=== PATIENT | female | born 1970 | race Caucasian/White ===

== ENCOUNTER 2017-04-03 07:53 | Day surgery (SDC) | payer MEDICAID, OTHER ==
[~2017-04-03 07:53] MED LIST: Midazolam 1 MG/ML 2 ML SDV ONE; Propofol 200 MG/20 ML SDV ONE; fentaNYL 100 MCG/2 ML SDV ONE
[2017-04-03] MEDS ORDERED: Sodium Chloride 0.9% 1,000 ML IV SCH (08:30)
[2017-04-03] MEDS ORDERED: Magnesium Sulfate/Water 2 GM in Premix Bag 1 BAG IV ONE (08:30)
[2017-04-03] MEDS: Bupivacaine 0.5% 50 ML MDV ONE ×2 (08:51→10:00)
[2017-04-03] MEDS: Lidocaine 1% with EPINEPHrine 1:100,000 50 ML MDV ONE ×2 (08:52→10:00)
[2017-04-03] MEDS ORDERED: Clindamycin Phosphate 900 MG in Sodium Chloride 0.9% 100 ML IV ONE (09:00)
[2017-04-03] MEDS ORDERED: Hydrocortisone Sodium Succinate 100 MG/2 ML SDV IVPUSH PRN (09:14)
[2017-04-03] MEDS ORDERED: Famotidine 20 MG/2 ML SDV IVPUSH PRN (09:17)
[2017-04-03] MEDS ORDERED: diphenhydrAMINE 50 MG/ML SDV IVPUSH PRN (10:45)
[2017-04-03 12:14] VITALS: BP 108/73
--- NOTE | 2017-04-04 17:38 | OR ---
DATE OF PROCEDURE: 04/03/2017 PREOPERATIVE DIAGNOSIS: Ulcerated skin lesions along the nipple areolar border bilaterally. POSTOPERATIVE DIAGNOSIS: Ulcerated skin lesions along the nipple areolar border bilaterally. OPERATIVE PROCEDURE: 1. Excision of ulcerated skin lesion along the inferior aspect of the areolar border, right breast (13313). 2. Excision of ulcerated skin lesion, superior aspect of the areolar border, right breast ([id number]). 3. Excision of ulcerated skin lesion lateral aspect of the areolar border, left breast ([id number]). ANESTHESIA: Local plus sedation. INDICATION FOR PROCEDURE: The patient presents with three ulcerating lesions. These were all located along the previous incision line used during the breast reduction at the point where the nipple-areolar complex had been placed in a new location. Two of these are on the right side and one on the left. The plan is to proceed with excision of these. These may be related to some underlying suture material or foreign body such as causing reaction. Given this, we will do a simple repair rather than leaving any deeper stitches in place. The potential risks including bleeding, infection, the lack of the deeper sutures as the incisions may become open were reviewed, and the patient wishes to proceed. DETAILS OF PROCEDURE: The patient was taken to the operating room and placed in a spine position. After IV sedation was administered, the breast areas were prepped bilaterally and each site was anesthetized with 1% lidocaine mixed with Marcaine. The lesion over the right inferior breast measured 2.4 cm, the superior breast 3.1 cm and the lateral aspect of the left breast was 1.2 cm. In each case, elliptical incisions in line of the incision were made, carried down through the skin and subcutaneous tissue, removing any underlying pathology and specimens were delivered from the field. The larger of those 2 areas both on the right were bisected to some extent and cultures obtained and the incisions in each case were then closed with 4-0 Vicryl skin stitch and dressing applied. The patient was taken to the recovery room in satisfactory condition. Additional management in this case included knowing that her magnesium and ferritin levels were both quite low, she had been given 500 mg of Feraheme today and then lab repeated some time in the next week or so and then magnesium sulfate 2 g given IV, and she will be started on magnesium sulfate 100 mg x30 days with refills x6, at some point in the few months the magnesium and iron levels will need to be repeated. Feliciano Azul MD /[id number]
== END 2017-04-03 12:25 | disposition home or self-care (01) ==
LOC: JP.SDS 07:53
PROVIDERS: ATTEND Surgery
DX: N60.32 Fibrosclerosis of left breast (principal); N60.31 Fibrosclerosis of right breast; N61.1 Abscess of the breast and nipple; E66.9 Obesity, unspecified; G45.9 Transient cerebral ischemic attack, unspecified; I63.9 Cerebral infarction, unspecified; F41.9 Anxiety disorder, unspecified; F32.9 Major depressive disorder, single episode, unspecified; I10 Essential (primary) hypertension; E11.9 Type 2 diabetes mellitus without complications; K21.9 Gastro-esophageal reflux disease without esophagitis; Z88.0 Allergy status to penicillin; Z88.1 Allergy status to other antibiotic agents; Z88.8 Allergy status to other drugs, medicaments and biological substances; Z91.010 Allergy to peanuts; Z91.018 Allergy to other foods; Z91.030 Bee allergy status; Z91.013 Allergy to seafood; Z90.49 Acquired absence of other specified parts of digestive tract; Z98.84 Bariatric surgery status; Z90.710 Acquired absence of both cervix and uterus; Z98.890 Other specified postprocedural states; Z68.30 Body mass index [BMI] 30.0-30.9, adult
CPT/HCPCS: 11402; 11403; 87070; 87075; 87077; 87186; 87205; 88305; 88312; J2250; J2704; J3010; J3475; J7030; J7040; Q0138; S0077

== ENCOUNTER 2017-04-20 06:35 | Day surgery (SDC) | payer MEDICAID ==
[2017-04-20] MEDS ORDERED: Cyanocobalamin (Vitamin B12) 1,000 MCG/ML SDV IM ONE (07:30)
[2017-04-20] MEDS ORDERED: Lactated Ringers 1,000 ML IV SCH (07:30)
[2017-04-20] MEDS ORDERED: Midazolam 1 MG/ML 2 ML SDV ONE (07:41)
[2017-04-20] MEDS ORDERED: fentaNYL 100 MCG/2 ML SDV ONE (07:41)
[2017-04-20] MEDS ORDERED: Propofol 200 MG/20 ML SDV ONE (07:41)
[2017-04-20] MEDS ORDERED: MVI, Adult with Vitamin K 10 ML, Thiamine 200 MG, Chromium/Copper/Mang/Selen/Zn 1 ML in... IV ONE ×4 (08:30)
[2017-04-20] MEDS ORDERED: Glycopyrrolate 0.2 MG/ML 2 ML SDV IVPUSH ONE (08:30)
[2017-04-20 10:54] VITALS: BP 120/81
--- NOTE | 2017-04-25 15:52 | OR ---
DATE OF PROCEDURE: 04/20/2017 PREOPERATIVE DIAGNOSIS: Dysphagia, status post George-en-Y gastrojejunostomy. POSTOPERATIVE DIAGNOSIS: Normal examination, status post George-en-Y gastrojejunostomy. OPERATIVE PROCEDURE: Upper GI endoscopy with dilation of gastrojejunostomy ([id number]). ANESTHESIA: IV sedation. INDICATION FOR PROCEDURE: This is a 46-year-old status post George-en-Y gastrojejunostomy for gastroesophageal reflux disease refractory to medical management following previous Marcelo fundoplication. She is complaining of some dysphagia suggestive of stricturing at her gastrojejunostomy. Plan is to proceed with upper GI endoscopy with biopsy and/or dilation as indicated. Potential risks including bleeding and perforation were discussed, and the patient wishes to proceed. DETAILS OF PROCEDURE: The patient was taken to the operating room and placed in a left lateral decubitus position. IV sedation was administered, after which the upper GI endoscope was passed orally through the length of the esophagus into the gastric pouch and through the gastrojejunostomy roughly 20 cm into the George limb. The patient was noted to have essentially normal examination. A 54-Sudanese dilator was inflated across the gastrojejunostomy, but it did not result any significant change confirming that this was not significant stenotic anastomosis. No other problems were noted. The scope was then withdrawn and the procedure was then concluded. The patient received some additional guidance with dietary regarding eating behavior which should help relieve dysphagia. Feliciano Azul MD /[id number]
== END 2017-04-20 11:18 | disposition home or self-care (01) ==
LOC: JP.SDS 06:35
PROVIDERS: ATTEND Surgery
DX: R13.10 Dysphagia, unspecified (principal); K21.9 Gastro-esophageal reflux disease without esophagitis; I10 Essential (primary) hypertension; E11.9 Type 2 diabetes mellitus without complications; F41.9 Anxiety disorder, unspecified; F32.9 Major depressive disorder, single episode, unspecified; E55.9 Vitamin D deficiency, unspecified; G45.9 Transient cerebral ischemic attack, unspecified; Z98.84 Bariatric surgery status; Z88.0 Allergy status to penicillin; Z88.1 Allergy status to other antibiotic agents; Z88.8 Allergy status to other drugs, medicaments and biological substances; Z91.010 Allergy to peanuts; Z91.018 Allergy to other foods; Z91.013 Allergy to seafood
CPT/HCPCS: 43245; J2250; J2704; J3010; J3411; J3420; J7120; J3490

== ENCOUNTER 2017-06-03 18:18 | Emergency (ER) | payer MEDICAID ==
[2017-06-03] MEDS ORDERED: HYDROmorphone 1 MG/ML Syringe IVPUSH ONE (20:21)
[2017-06-03] MEDS ORDERED: Ondansetron 4 MG/2 ML SDV IVPUSH ONE (20:22)
[2017-06-03] MEDS ORDERED: Sodium Chloride 0.9% 1,000 ML IV SCH (20:30)
--- NOTE | 2017-06-03 20:40 | EDM.PDOC ---
ED HPI GENERAL MEDICAL PROBLEM - General Chief Complaint: Back Pain or Injury Stated Complaint: ILLNESS Time Seen by Provider: 06/03/17 20:01 Source of Information: Reports: Patient, Family (Mom and adult Daughter) History Limitations: Reports: No Limitations - History of Present Illness INITIAL COMMENTS - FREE TEXT/NARRATIVE: concerns of malfunction of Pain pump; This is a 46 year old female presents to ER with Mom and daughter. Reports has a "pain" pump in the right abdomen. This was placed in Dec 2015. She initial had complications after placement, but none with the past year. 3 days ago, she noticed she was unable to feel the port and her abdomen felt sore. She has since developed a headache, generalized body ache and worsen back pain. She did call [facility] line and was told to come to ER for evaluation. Concerns of disconnection of tubing, not receiving Dilaudid and Bevacaine, and early narcotic withdrawn. Onset: Gradual Onset Date: 06/01/17 Duration: Day(s): (three) Location: Reports: Abdomen Severity: Moderate (rates pain at 7 or 8 out of 10) Improves with: Reports: None Worsens with: Reports: None Context: Reports: Other (internal pump malfunction) Associated Symptoms: Reports: Headaches, Loss of Appetite, Malaise, Nausea/ Vomiting, Other (generalized body aches and pain) Lower Back Pain Score (Numeric/FACES): 8 headache Pain Score (Numeric/FACES): 8 - Related Data Allergies Allergy/AdvReac Type Severity Reaction Status Date / Time peanut Allergy Severe Anaphylactic Verified 06/03/17 19:45 Shock prochlorperazine edisylate Allergy Severe swelling Verified 06/03/17 19:45 [From Compazine] throat amoxicillin [Amoxicillin] Allergy Hives Verified 06/03/17 19:45 beeswax Allergy Other Verified 06/03/17 19:45 cefadroxil [Cefadroxil] Allergy Cannot Verified 06/03/17 19:45 Remember cephalexin monohydrate Allergy Hives Verified 06/03/17 19:45 [From Keflex] Cephalosporins Allergy Hives Verified 06/03/17 19:45 garlic [From Garlique] Allergy Hives Verified 06/03/17 19:45 gluten Allergy Other Verified 06/03/17 19:45 levofloxacin [From Levaquin] Allergy Rash Verified 06/03/17 19:45 lisinopril Allergy Rash Verified 06/03/17 19:45 Penicillins Allergy Rash Verified 06/03/17 19:45 prochlorperazine maleate Allergy Cannot Verified 06/03/17 19:45 [From Compazine] Remember promethazine Allergy Hives Verified 06/03/17 19:45 shellfish derived Allergy Hives Verified 06/03/17 19:45 strawberry [Waldo] Allergy Hives Verified 06/03/17 19:45 metformin AdvReac Diarrhea Verified 06/03/17 19:45 Home Meds: Home Meds Multivitamin [Chewable Multi Vitamin] 1 tab PO DAILY 10/29/14 [History] Magnesium Oxide [Magnesium] 400 mg PO TID 02/26/15 [History] Baclofen 20 mg PO BID 03/30/17 [History] Cholecalciferol (Vitamin D3) [Vitamin D3] 50,000 unit PO .7DAY 03/30/17 [History ] ClonazePAM [KlonoPIN] 0.25 mg PO BID PRN 03/30/17 [History] Furosemide [Lasix] 20 mg PO DAILY 03/30/17 [History] Gabapentin [Neurontin] 600 mg PO QID 03/30/17 [History] Ondansetron [Zofran] 4 mg PO Q8HR PRN 03/30/17 [History] Potassium Chloride 20 meq PO BID 04/03/17 [History] Orphenadrine [Norflex] 100 mg PO BEDTIME PRN 06/03/17 [History] Past Medical History HEENT History: Reports: None Cardiovascular History: Reports: Hypertension Gastrointestinal History: Reports: GERD, Irritable Bowel Syndrome, Pancreatitis Other Gastrointestinal History: liver problems/ pancreatitis Genitourinary History: Reports: UTI, Recurrent [employer] History: Reports: Other OB/BYN History: bilateral breast reduction Musculoskeletal History: Reports: Back Pain, Chronic, Fibromyalgia, Osteoporosis Neurological History: Reports: CVA, TIA, Other (See Below) Other Neuro History: subdural hematoma after "pain pump surgery" Psychiatric History: Reports: Anxiety, Depression, Suicide Attempt Endocrine/Metabolic History: Reports: Diabetes, Type II, Obesity/BMI 30+, Vitamin D Deficiency Hematologic History: Reports: Anemia, B12 Deficiency, Blood Transfusion(s), Hemochromatosis Dermatologic History: Reports: Other (See Below) Other Dermatologic History: history necrotizing fasciitis - Infectious Disease History Infectious Disease History: Reports: Chicken Pox, Mononucleosis Other Infectious Disease History: "non alcoholic steato hepatitis" - Past Surgical History HEENT Surgical History: Reports: Oral Surgery Cardiovascular Surgical History: Reports: Other (See Below) Other Cardiovascular Surgeries/Procedures: angiogram GI Surgical History: Reports: Bariatric Procedure, Cholecystectomy, Colonoscopy , EGD, Esophageal Dilatation Female Surgical History: Reports: Breast Biopsy, Breast Reduction, Hysterectomy Neurological Surgical History: Reports: Other (See Below) Other Neurological Surgeries/Procedures: "pain pump in spine" lower back according to patient Social & Family History - Family History Family Medical History: Noncontributory - Tobacco Use Smoking Status *Q: Never Smoker Years of Tobacco use: 1 Used Tobacco, but Quit: Yes Month Tobacco Last Used: 05/1990 Second Hand Smoke Exposure: No - Caffeine Use Caffeine Use: Reports: None - Alcohol Use Days Per Week of Alcohol Use: 0 Number of Drinks Per Day: 1 Total Drinks Per Week: 0 - Recreational Drug Use Recreational Drug Use: No Drug Use in Last 12 Months: No - Living Situation & Occupation Living situation: Reports: Single, with Family Occupation: Disabled (lives in [place], [place]. with Mom, and adult daughter) ED ROS GENERAL - Review of Systems Review Of Systems: See Below Constitutional: Reports: Malaise, Fatigue HEENT: Reports: Other (headache) Respiratory: Reports: No Symptoms Cardiovascular: Reports: No Symptoms Endocrine: Reports: No Symptoms GI/Abdominal: Reports: Abdominal Pain (palpate internal device to the right abdomen. no redness to the skin is noted. tenderness surrounding the device. ), Nausea, Other (hx of gastric bypass, priyanka fundiplication) : Reports: No Symptoms, Frequency Musculoskeletal: Reports: Back Pain, Muscle Pain Skin: Reports: No Symptoms Neurological: Reports: Headache Psychiatric: Reports: Depression Hematologic/Lymphatic: Reports: No Symptoms Immunologic: Reports: No Symptoms ED EXAM, GI/ABD - Physical Exam Exam: See Below Exam Limited By: No Limitations General Appearance: Alert, WD/WN, Mild Distress, Thin Eyes: Bilateral: Normal Appearance (perrla), EOMI Ears: Normal External Exam, Normal Canal, Hearing Grossly Normal, Normal TMs Nose: Normal Inspection, Normal Mucosa, No Blood Throat/Mouth: Normal Inspection, Normal Lips, Normal Teeth, Normal Gums, Normal Oropharynx, Normal Voice, No Airway Compromise, Other (no natural teeth present) Head: Atraumatic, Normocephalic Neck: Normal Inspection, Supple, Non-Tender, Full Range of Motion Respiratory/Chest: No Respiratory Distress Cardiovascular: Regular Rate, Rhythm, No Murmur GI/Abdominal Exam: Normal Bowel Sounds, Soft, No Distention, Tender ( surrounding internal device right abdomen) (Female) Exam: Deferred Rectal (Female) Exam: Deferred Back Exam: Normal Inspection, Full Range of Motion Extremities: Normal Inspection, Normal Range of Motion, Non-Tender, No Pedal Edema, Normal Capillary Refill Neurological: Alert, Oriented, CN II-XII Intact, No Motor/Sensory Deficits, Other (flat affect) Psychiatric: Flat Affect Skin Exam: Warm, Dry, Intact, Normal Color, No Rash Lymphatic: No Adenopathy Course - Vital Signs Last Recorded V/S: Last Vital Signs Temp 36.4 C 06/03/17 19:52 Pulse 80 06/03/17 20:48 Resp 16 06/03/17 20:48 BP 142/85 H 06/03/17 20:48 Pulse Ox 100 06/03/17 20:48 - Orders/Labs/Meds Orders: Active Orders 24 hr Category Date Time Status Abdomen Pelvis wo Cont [CT] Stat Exams 06/03/17 20:23 Taken Sodium Chloride 0.9% [Normal Saline] 1,000 ml Med 06/03/17 20:30 Active IV ASDIRECTED Medication Orders Sodium Chloride (Normal Saline) 1,000 mls @ 999 mls/hr IV ASDIRECTED SOURAV Last Admin: 06/03/17 20:41 Dose: 999 mls/hr Labs: Laboratory Tests 06/03/17 06/03/17 06/03/17 Range/Units 20:21 20:21 20:40 WBC 6.0 (4.5-11.0) K/uL RBC 4.86 (3.30-5.50) M/uL Hgb 14.8 (12.0-15.0) g/dL Hct 43.5 (36.0-48.0) % MCV 90 (80-98) fL MCH 31 (27-31) pg MCHC 34 (32-36) % Plt Count 182 (150-400) K/uL Neut % (Auto) 42 (36-66) % Lymph % (Auto) 45 H (24-44) % Charlotte % (Auto) 12 H (2-6) % Eos % (Auto) 2 (2-4) % Baso % (Auto) 0 (0-1) % Sodium 142 (140-148) mmol/L Potassium 4.8 (3.6-5.2) mmol/L Chloride 102 (100-108) mmol/L Carbon Dioxide 32 (21-32) mmol/L Anion Gap 8.5 (5.0-14.0) mmol/L BUN 13 (7-18) mg/dL Creatinine 0.8 (0.6-1.0) mg/dL Est Cr Clr Drug Dosing 83.13 mL/min Estimated GFR (MDRD) > 60 (>60) Glucose 110 H (74-106) mg/dL Calcium 9.2 (8.5-10.1) mg/dL Magnesium 1.9 D (1.8-2.4) mg/dL Total Bilirubin 0.5 (0.2-1.0) mg/dL AST 53 H (15-37) U/L ALT 38 (12-78) U/L Alkaline Phosphatase 64 (46-116) U/L Total Protein 7.8 (6.4-8.2) g/dL Albumin 3.9 (3.4-5.0) g/dL Globulin 3.9 H (2.3-3.5) g/dL Albumin/Globulin Ratio 1.0 L (1.2-2.2) Urine Color Yellow Urine Appearance Slightly cloudy Urine pH 5.0 (4.5-8.0) Ur Specific Mchenry 1.020 (1.008-1.030) Urine Protein Negative (NEGATIVE) mg/dL Urine Glucose (UA) Normal (NEGATIVE) mg/dL Urine Ketones Negative (NEGATIVE) mg/dL Urine Occult Blood Negative (NEGATIVE) Urine Nitrite Negative (NEGATIVE) Urine Bilirubin Negative (NEGATIVE) Urine Urobilinogen 1 (NORMAL) mg/dL Ur Leukocyte Esterase Large (NEGATIVE) Urine RBC Not seen (0-5) Urine WBC 30-40 H (0-5) Ur Epithelial Cells Moderate Amorphous Sediment Not seen Urine Bacteria Moderate Urine Mucus Few Urine Opiates Screen (NEGATIVE) Ur Oxycodone Screen (NEGATIVE) Urine Methadone Screen (NEGATIVE) Ur Propoxyphene Screen (NEGATIVE) Ur Barbiturates Screen (NEGATIVE) Ur Tricyclics Screen (NEGATIVE) Ur Phencyclidine Scrn (NEGATIVE) Ur Amphetamine Screen (NEGATIVE) U Methamphetamines Scrn (NEGATIVE) Urine MDMA Screen (NEGATIVE) U Benzodiazepines Scrn (NEGATIVE) U Cocaine Metab Screen (NEGATIVE) U Marijuana (THC) Screen (NEGATIVE) 06/03/17 Range/Units 20:40 WBC (4.5-11.0) K/uL RBC (3.30-5.50) M/uL Hgb (12.0-15.0) g/dL Hct (36.0-48.0) % MCV (80-98) fL MCH (27-31) pg MCHC (32-36) % Plt Count (150-400) K/uL Neut % (Auto) (36-66) % Lymph % (Auto) (24-44) % Charlotte % (Auto) (2-6) % Eos % (Auto) (2-4) % Baso % (Auto) (0-1) % Sodium (140-148) mmol/L Potassium (3.6-5.2) mmol/L Chloride (100-108) mmol/L Carbon Dioxide (21-32) mmol/L Anion Gap (5.0-14.0) mmol/L BUN (7-18) mg/dL Creatinine (0.6-1.0) mg/dL Est Cr Clr Drug Dosing mL/min Estimated GFR (MDRD) (>60) Glucose (74-106) mg/dL Calcium (8.5-10.1) mg/dL Magnesium (1.8-2.4) mg/dL Total Bilirubin (0.2-1.0) mg/dL AST (15-37) U/L ALT (12-78) U/L Alkaline Phosphatase (46-116) U/L Total Protein (6.4-8.2) g/dL Albumin (3.4-5.0) g/dL Globulin (2.3-3.5) g/dL Albumin/Globulin Ratio (1.2-2.2) Urine Color Urine Appearance Urine pH (4.5-8.0) Ur Specific Mchenry (1.008-1.030) Urine Protein (NEGATIVE) mg/dL Urine Glucose (UA) (NEGATIVE) mg/dL Urine Ketones (NEGATIVE) mg/dL Urine Occult Blood (NEGATIVE) Urine Nitrite (NEGATIVE) Urine Bilirubin (NEGATIVE) Urine Urobilinogen (NORMAL) mg/dL Ur Leukocyte Esterase (NEGATIVE) Urine RBC (0-5) Urine WBC (0-5) Ur Epithelial Cells Amorphous Sediment Urine Bacteria Urine Mucus Urine Opiates Screen Positive H (NEGATIVE) Ur Oxycodone Screen Negative (NEGATIVE) Urine Methadone Screen Negative (NEGATIVE) Ur Propoxyphene Screen Negative (NEGATIVE) Ur Barbiturates Screen Negative (NEGATIVE) Ur Tricyclics Screen Negative (NEGATIVE) Ur Phencyclidine Scrn Negative (NEGATIVE) Ur Amphetamine Screen Negative (NEGATIVE) U Methamphetamines Scrn Negative (NEGATIVE) Urine MDMA Screen Negative (NEGATIVE) U Benzodiazepines Scrn Negative (NEGATIVE) U Cocaine Metab Screen Negative (NEGATIVE) U Marijuana (THC) Screen Negative (NEGATIVE) Meds: Medications Generic Name Dose Route Start Last Admin Trade Name Freq PRN Reason Stop Dose Admin Sodium Chloride 1,000 mls @ 999 mls/hr 06/03/17 20:30 06/03/17 20:41 Normal Saline IV 999 mls/hr ASDIRECTED SOURAV Administration Discontinued Medications Generic Name Dose Route Start Last Admin Trade Name Freq PRN Reason Stop Dose Admin Hydromorphone HCl 1 mg 06/03/17 20:21 06/03/17 20:44 Dilaudid IVPUSH 06/03/17 20:22 1 mg ONETIME ONE Administration Ondansetron HCl 4 mg 06/03/17 20:22 06/03/17 20:43 Zofran IVPUSH 06/03/17 20:23 4 mg ONETIME ONE Administration - Re-Assessments/Exams Free Text/Narrative Re-Assessment/Exam: 06/03/17 20:55 labs; cbc, cmp, mg++, ua, urine drug screen imaging; CT abdomen-pelvis meds; IV normal saline 1 liter, IV Dilaudid 1mg, IV Zofran 4mg awaiting result of testing. 06/03/17 21:55 labs; cbc, cmp, mg++, urine drug screen appropriate urine show acute UTI imaging; CT Abdomen Pelvis; impression; right lower quadrant baclofen pump. no fluid colleciton associated with the pump. assessment of the catheter immediately adjacent to the pump is limietd secondary to artifact. where able to be evaluated, no catheter discontinuity is appreciated. changes of prior gastric bypass. no bowel obstruction. prior cholecystectomy. ormal appearance of the biliary system status pos cholecystectomy. area of geographic fatty infiltration of the liver. non obstructive intrarenal calcul. no ureteral calculi or hydronephrosis. reviewed with Ms. Wang and her family all labs and scan. given a copy of CT scan for her records.. 06/03/17 22:07 improved with IV fluids and medications. Departure - Departure Time of Disposition: 22:07 Disposition: Home, Self-Care 01 Condition: Good Clinical Impression: Urinary tract infection, Presence of intrathecal baclofen pump - Discharge Information Referrals: PCP,None [Primary Care Provider] - Forms: ED Department Discharge Care Plan Goals: Urinary Tract Infection -start Septra DS tonight, take one tablet two times a day til gone -if develops sign of yeast infection, has script for Diflucon 150mg po -advise to push fluids, take medication as directed, return to clinic or ER if symptoms worsen or not improved. Baclofen pump -evaluation by CT scan, appears to be intact, no leakage of fluids. -urine drug screen positive for opiates, which has Dilaudid and bevacaine in her pump -advise to follow up with [facility] for recheck. - Problem List & Annotations (1) Urinary tract infection SNOMED Code(s): 02063272 Code(s): N39.0 - URINARY TRACT INFECTION, SITE NOT SPECIFIED Status: Acute Priority: High Current Visit: Yes Qualifiers: Urinary tract infection type: acute cystitis Hematuria presence: without hematuria Qualified Code(s): N30.00 - Acute cystitis without hematuria (2) Presence of intrathecal baclofen pump SNOMED Code(s): 313733647 Code(s): Z98.890 - OTHER SPECIFIED POSTPROCEDURAL STATES Status: Acute Priority: High Current Visit: Yes - Problem List Review Problem List Initiated/Reviewed/Updated: Yes - My Orders Last 24 Hours: My Active Orders 06/03/17 20:23 Abdomen Pelvis wo Cont [CT] Stat 06/03/17 20:30 Sodium Chloride 0.9% [Normal Saline] 1,000 ml IV ASDIRECTED - Assessment/Plan Last 24 Hours: My Active Orders 06/03/17 20:23 Abdomen Pelvis wo Cont [CT] Stat 06/03/17 20:30 Sodium Chloride 0.9% [Normal Saline] 1,000 ml IV ASDIRECTED Plan: Urinary Tract Infection -start Septra DS tonight, take one tablet two times a day til gone -if develops sign of yeast infection, has script for Diflucon 150mg po,take at onset of yeast symptoms -advise to push fluids, take medication as directed, return to clinic or ER if symptoms worsen or not improved. Baclofen pump -evaluation by CT scan, appears to be intact, no leakage of fluids. -urine drug screen positive for opiates, which is appropriate as she has Dilaudid and bevacaine in her pump -advise to follow up with [facility] for recheck.
[2017-06-03 22:05] VITALS: BP 139/81
== END 2017-06-03 22:14 | disposition home or self-care (01) ==
LOC: JP.ED 18:18
DX: N39.0 Urinary tract infection, site not specified (principal); I10 Essential (primary) hypertension; E11.9 Type 2 diabetes mellitus without complications; Z88.8 Allergy status to other drugs, medicaments and biological substances; Z91.013 Allergy to seafood; Z88.1 Allergy status to other antibiotic agents; Z88.0 Allergy status to penicillin; Z79.899 Other long term (current) drug therapy; Z97.8 Presence of other specified devices
CPT/HCPCS: 36415; 74176; 80053; 80305; 81001; 83735; 85025; 96361; 96374; 96375; 99284; J1170; J2405; J7040; J7030

== ENCOUNTER 2017-06-14 19:00 | Emergency (ER) | payer MEDICAID ==
[2017-06-14 19:39] VITALS: BP 140/89
--- NOTE | 2017-06-14 20:43 | EDM.PDOC ---
ED HPI GENERAL MEDICAL PROBLEM - General Chief Complaint: General Stated Complaint: HEADACHES/DROOLING HARD TO WALK Time Seen by Provider: 06/14/17 20:32 Source of Information: Reports: Patient, RN Notes Reviewed History Limitations: Reports: No Limitations - History of Present Illness INITIAL COMMENTS - FREE TEXT/NARRATIVE: 46-year-old female presents emergency department today with complaint of excessive daytime sleepiness, concern for leaking pain pump and unsteady gait, she was evaluated by neurology last month extensive workup thought to be related to polypharmacy possibly sleep-disordered does have a sleep study upcoming, her and her mother are concerned that she may have a brain bleed and that is the root cause of her problems Bladder Pain Score (Numeric/FACES): 6 - Related Data Allergies Allergy/AdvReac Type Severity Reaction Status Date / Time peanut Allergy Severe Anaphylactic Verified 06/14/17 19:52 Shock prochlorperazine edisylate Allergy Severe swelling Verified 06/14/17 19:52 [From Compazine] throat amoxicillin [Amoxicillin] Allergy Hives Verified 06/14/17 19:52 beeswax Allergy Other Verified 06/14/17 19:52 cefadroxil [Cefadroxil] Allergy Cannot Verified 06/14/17 19:52 Remember cephalexin monohydrate Allergy Hives Verified 06/14/17 19:52 [From Keflex] Cephalosporins Allergy Hives Verified 06/14/17 19:52 garlic [From Garlique] Allergy Hives Verified 06/14/17 19:52 gluten Allergy Other Verified 06/14/17 19:52 levofloxacin [From Levaquin] Allergy Rash Verified 06/14/17 19:52 lisinopril Allergy Rash Verified 06/14/17 19:52 Penicillins Allergy Rash Verified 06/14/17 19:52 prochlorperazine maleate Allergy Cannot Verified 06/14/17 19:52 [From Compazine] Remember promethazine Allergy Hives Verified 06/14/17 19:52 shellfish derived Allergy Hives Verified 06/14/17 19:52 strawberry [[place]] Allergy Hives Verified 06/14/17 19:52 metformin AdvReac Diarrhea Verified 06/14/17 19:52 Home Meds: Home Meds Multivitamin [Chewable Multi Vitamin] 1 tab PO DAILY 10/29/14 [History] Magnesium Oxide [Magnesium] 400 mg PO TID 10/02/15 [History] Baclofen 20 mg PO BID 03/30/17 [History] Cholecalciferol (Vitamin D3) [Vitamin D3] 50,000 unit PO .7DAY 03/30/17 [History ] ClonazePAM [KlonoPIN] 0.25 mg PO BID PRN 03/30/17 [History] Furosemide [Lasix] 20 mg PO DAILY 03/30/17 [History] Gabapentin [Neurontin] 600 mg PO QID 03/30/17 [History] Ondansetron [Zofran] 4 mg PO Q8HR PRN 03/30/17 [History] Potassium Chloride 20 meq PO BID 04/03/17 [History] Orphenadrine [Norflex] 100 mg PO BEDTIME PRN 06/03/17 [History] Past Medical History Cardiovascular History: Reports: Hypertension Gastrointestinal History: Reports: GERD, Irritable Bowel Syndrome, Pancreatitis Other Gastrointestinal History: liver problems/ pancreatitis Genitourinary History: Reports: UTI, Recurrent [employer] History: Reports: Other OB/BYN History: bilateral breast reduction Musculoskeletal History: Reports: Back Pain, Chronic, Fibromyalgia, Osteoporosis Neurological History: Reports: CVA, TIA, Other (See Below) Other Neuro History: subdural hematoma after "pain pump surgery" Psychiatric History: Reports: Anxiety, Depression, Suicide Attempt Endocrine/Metabolic History: Reports: Diabetes, Type II, Obesity/BMI 30+, Vitamin D Deficiency Hematologic History: Reports: Anemia, B12 Deficiency, Blood Transfusion(s), Hemochromatosis Dermatologic History: Reports: Other (See Below) Other Dermatologic History: history necrotizing fasciitis - Infectious Disease History Infectious Disease History: Reports: Chicken Pox Other Infectious Disease History: "non alcoholic steato hepatitis" - Past Surgical History HEENT Surgical History: Reports: Oral Surgery Cardiovascular Surgical History: Reports: Other (See Below) Other Cardiovascular Surgeries/Procedures: angiogram GI Surgical History: Reports: Bariatric Procedure, Cholecystectomy, Colonoscopy , EGD, Esophageal Dilatation Female Surgical History: Reports: Breast Biopsy, Breast Reduction, Hysterectomy Neurological Surgical History: Reports: Other (See Below) Other Neurological Surgeries/Procedures: "pain pump in spine" lower back according to patient Social & Family History - Family History Family Medical History: Noncontributory - Tobacco Use Smoking Status *Q: Never Smoker Years of Tobacco use: 1 Used Tobacco, but Quit: Yes Month Tobacco Last Used: 05/1990 Second Hand Smoke Exposure: No - Caffeine Use Caffeine Use: Reports: Soda - Alcohol Use Days Per Week of Alcohol Use: 0 Number of Drinks Per Day: 1 Total Drinks Per Week: 0 - Recreational Drug Use Recreational Drug Use: No Drug Use in Last 12 Months: No - Living Situation & Occupation Living situation: Reports: Single, with Family Occupation: Disabled (lives in [place], [place]. with Mom, and adult daughter) ED ROS GENERAL - Review of Systems Review Of Systems: See Below Constitutional: Reports: Weakness, Fatigue, Other (Unsteady gait). Denies: Fever, Chills HEENT: Reports: No Symptoms Respiratory: Reports: No Symptoms Cardiovascular: Reports: No Symptoms GI/Abdominal: Reports: Nausea, Vomiting. Denies: Abdominal Pain : Reports: No Symptoms Musculoskeletal: Reports: No Symptoms Skin: Reports: No Symptoms Neurological: Reports: Headache, Difficulty Walking ED EXAM, GENERAL - Physical Exam Exam: See Below Free Text/Narrative:: General: Female, not in any distress, alert and oriented x3 HEENT: head is atraumatic normocephalic, eyes pupils equal round reactive to light, sclera clear no conjunctivitis appreciated. Ears tympanic membranes clear and dalton landmarks and light reflex are present bilaterally canals are clear. Nose no septal deviation, nares are clear, no blood present. Mouth mucosa is moist and pink no erythema or exudate noted in soft palate, tongue is midline uvula is midline, dentition is intact. Neck: Supple no thyromegaly no tracheal deviation. Nodes: Cervical nodes subclavicular nodes nontender no palpable lymphadenopathy noted. Lungs: clear to auscultation bilaterally with symmetrical respirations, no adventitious noise appreciated. CV: Regular rate and rhythm S1 and S2 appreciated no murmurs rubs or gallops noted. Abdomen: Soft, nontender, no palpable masses or organomegaly appreciated, no distention no guarding bowel sounds are present, . Neuro: Cranial nerves II through XII grossly intact moves all extremities without difficulty Skin: Warm and dry, intact Extremities: No lower extremity edema appreciated, Course - Vital Signs Last Recorded V/S: Last Vital Signs Temp 95.3 F L 06/14/17 19:48 Pulse 75 06/14/17 19:48 Resp 16 06/14/17 19:48 BP 140/89 06/14/17 19:48 Pulse Ox 98 06/14/17 19:48 - Orders/Labs/Meds Orders: Active Orders 24 hr Category Date Time Status Head wo Cont [CT] Urgent Exams 06/14/17 20:39 Taken Labs: Laboratory Tests 06/14/17 06/14/17 06/14/17 Range/Units 20:39 20:39 20:39 WBC 4.1 L (4.5-11.0) K/uL RBC 4.14 (3.30-5.50) M/uL Hgb 12.7 D (12.0-15.0) g/dL Hct 36.9 (36.0-48.0) % MCV 89 (80-98) fL MCH 31 (27-31) pg MCHC 34 (32-36) % Plt Count 129 L (150-400) K/uL Neut % (Auto) 45 (36-66) % Lymph % (Auto) 37 (24-44) % [place] % (Auto) 15 H (2-6) % Eos % (Auto) 3 (2-4) % Baso % (Auto) 1 (0-1) % Sodium 144 (140-148) mmol/L Potassium 4.5 (3.6-5.2) mmol/L Chloride 107 (100-108) mmol/L Carbon Dioxide 27 (21-32) mmol/L Anion Gap 9.8 (5.0-14.0) mmol/L BUN 18 (7-18) mg/dL Creatinine 0.9 (0.6-1.0) mg/dL Est Cr Clr Drug Dosing 73.90 mL/min Estimated GFR (MDRD) > 60 (>60) Glucose 102 (74-106) mg/dL Lactic Acid 1.1 (0.4-2.0) mmol/L Calcium 9.0 (8.5-10.1) mg/dL Total Bilirubin 0.3 (0.2-1.0) mg/dL AST 32 (15-37) U/L ALT 38 (12-78) U/L Alkaline Phosphatase 57 (46-116) U/L Total Protein 6.7 (6.4-8.2) g/dL Albumin 3.5 (3.4-5.0) g/dL Globulin 3.2 (2.3-3.5) g/dL Albumin/Globulin Ratio 1.1 L (1.2-2.2) Urine Color Urine Appearance Urine pH (4.5-8.0) Ur Specific [place] (1.008-1.030) Urine Protein (NEGATIVE) mg/dL Urine Glucose (UA) (NEGATIVE) mg/dL Urine Ketones (NEGATIVE) mg/dL Urine Occult Blood (NEGATIVE) Urine Nitrite (NEGATIVE) Urine Bilirubin (NEGATIVE) Urine Urobilinogen (NORMAL) mg/dL Ur Leukocyte Esterase (NEGATIVE) Urine RBC (0-5) Urine WBC (0-5) Ur Epithelial Cells Amorphous Sediment Urine Bacteria Urine Mucus Urine Other Urine Opiates Screen (NEGATIVE) Ur Oxycodone Screen (NEGATIVE) Urine Methadone Screen (NEGATIVE) Ur Propoxyphene Screen (NEGATIVE) Ur Barbiturates Screen (NEGATIVE) Ur Tricyclics Screen (NEGATIVE) Ur Phencyclidine Scrn (NEGATIVE) Ur Amphetamine Screen (NEGATIVE) U Methamphetamines Scrn (NEGATIVE) Urine MDMA Screen (NEGATIVE) U Benzodiazepines Scrn (NEGATIVE) U Cocaine Metab Screen (NEGATIVE) U Marijuana (THC) Screen (NEGATIVE) 06/14/17 06/14/17 Range/Units 21:22 21:22 WBC (4.5-11.0) K/uL RBC (3.30-5.50) M/uL Hgb (12.0-15.0) g/dL Hct (36.0-48.0) % MCV (80-98) fL MCH (27-31) pg MCHC (32-36) % Plt Count (150-400) K/uL Neut % (Auto) (36-66) % Lymph % (Auto) (24-44) % [place] % (Auto) (2-6) % Eos % (Auto) (2-4) % Baso % (Auto) (0-1) % Sodium (140-148) mmol/L Potassium (3.6-5.2) mmol/L Chloride (100-108) mmol/L Carbon Dioxide (21-32) mmol/L Anion Gap (5.0-14.0) mmol/L BUN (7-18) mg/dL Creatinine (0.6-1.0) mg/dL Est Cr Clr Drug Dosing mL/min Estimated GFR (MDRD) (>60) Glucose (74-106) mg/dL Lactic Acid (0.4-2.0) mmol/L Calcium (8.5-10.1) mg/dL Total Bilirubin (0.2-1.0) mg/dL AST (15-37) U/L ALT (12-78) U/L Alkaline Phosphatase (46-116) U/L Total Protein (6.4-8.2) g/dL Albumin (3.4-5.0) g/dL Globulin (2.3-3.5) g/dL Albumin/Globulin Ratio (1.2-2.2) Urine Color Yellow Urine Appearance Cloudy Urine pH 5.0 (4.5-8.0) Ur Specific [place] 1.020 (1.008-1.030) Urine Protein Negative (NEGATIVE) mg/dL Urine Glucose (UA) Normal (NEGATIVE) mg/dL Urine Ketones Negative (NEGATIVE) mg/dL Urine Occult Blood Negative (NEGATIVE) Urine Nitrite Negative (NEGATIVE) Urine Bilirubin Small (NEGATIVE) Urine Urobilinogen Normal (NORMAL) mg/dL Ur Leukocyte Esterase Large (NEGATIVE) Urine RBC 0-5 (0-5) Urine WBC 10-20 H (0-5) Ur Epithelial Cells Few Amorphous Sediment Few Urine Bacteria Few Urine Mucus Few Urine Other See note Urine Opiates Screen Negative (NEGATIVE) Ur Oxycodone Screen Negative (NEGATIVE) Urine Methadone Screen Negative (NEGATIVE) Ur Propoxyphene Screen Negative (NEGATIVE) Ur Barbiturates Screen Negative (NEGATIVE) Ur Tricyclics Screen Negative (NEGATIVE) Ur Phencyclidine Scrn Negative (NEGATIVE) Ur Amphetamine Screen Negative (NEGATIVE) U Methamphetamines Scrn Negative (NEGATIVE) Urine MDMA Screen Negative (NEGATIVE) U Benzodiazepines Scrn Positive H (NEGATIVE) U Cocaine Metab Screen Negative (NEGATIVE) U Marijuana (THC) Screen Negative (NEGATIVE) Departure - Departure Time of Disposition: 22:21 Disposition: Home, Self-Care 01 Condition: Poor Clinical Impression: Somnolence - Discharge Information Referrals: PCP,None [Primary Care Provider] - Forms: ED Department Discharge Additional Instructions: Please followup with your primary care provider in 3-5 days if not better, please call return to the emergency department with worsening of symptoms. - My Orders Last 24 Hours: My Active Orders 06/14/17 20:39 Head wo Cont [CT] Urgent - Assessment/Plan Last 24 Hours: My Active Orders 06/14/17 20:39 Head wo Cont [CT] Urgent Plan: Assessment Acuity = acute Site and laterality = excessive daytime somnolence Etiology = unclear etiology Manifestations = none Location of injury = Home Lab values = WBC low at 4.1 consistent with a leukopenia urinalysis shows 10-20 WBCs consistent pyuria urine drug screen positive for benzodiazepine CT scan of the head shows no acute process Plan Continue current medications recommend following up with pain clinic This note was dictated using [employer] voice recognition software please call with any questions on syntax or curtis.
== END 2017-06-14 22:35 | disposition home or self-care (01) ==
LOC: JP.ED 19:00
DX: R40.0 Somnolence (principal); I10 Essential (primary) hypertension; E11.9 Type 2 diabetes mellitus without complications; E66.9 Obesity, unspecified; K21.9 Gastro-esophageal reflux disease without esophagitis; Z91.013 Allergy to seafood; Z87.891 Personal history of nicotine dependence; Z88.8 Allergy status to other drugs, medicaments and biological substances; Z88.1 Allergy status to other antibiotic agents; Z88.0 Allergy status to penicillin; Z91.010 Allergy to peanuts; Z91.02 Food additives allergy status; Z91.030 Bee allergy status
CPT/HCPCS: 36415; 70450; 80053; 80305; 81001; 83605; 85025; 99283; 99284-25

== ENCOUNTER 2017-10-26 06:38 | Day surgery (SDC) | payer MEDICAID ==
[2017-10-26] MEDS ORDERED: Dextrose 5%-Lactated Ringers 1,000 ML IV SCH (07:00)
[2017-10-26] MEDS ORDERED: Glycopyrrolate 0.2 MG/ML 2 ML SDV IVPUSH ONE (07:00)
[2017-10-26] MEDS ORDERED: Bupivacaine 0.5% 50 ML MDV ONE (08:27)
[2017-10-26] MEDS ORDERED: Lidocaine 1% with EPINEPHrine 1:100,000 50 ML MDV ONE (08:27)
[2017-10-26] MEDS ORDERED: Bacitracin Oint 1 GM U/D Packet ONE (08:27)
[2017-10-26] MEDS ORDERED: Midazolam 1 MG/ML 2 ML SDV ONE (09:07)
[2017-10-26] MEDS ORDERED: fentaNYL 100 MCG/2 ML SDV ONE (09:07)
[2017-10-26] MEDS ORDERED: Propofol 200 MG/20 ML SDV ONE ×2 (09:07→10:12)
[2017-10-26 12:04] VITALS: BP 117/86
--- NOTE | 2017-10-29 10:29 | OR ---
DATE OF PROCEDURE: 10/26/2017 PREOPERATIVE DIAGNOSES: 1. Inflamed epidermoid cyst, left neck. 2. Symptoms of stricturing or partial obstruction at gastrojejunostomy. POSTOPERATIVE DIAGNOSES: 1. Inflamed epidermoid cyst, left neck. 2. Partial small bowel obstruction at gastrojejunostomy due to mucosal bands x2. 3. Mild stricture at gastrojejunostomy. OPERATIVE PROCEDURES: 1. Excision of inflamed epidermoid cyst, left neck, with layered closure (67946, 35204). 2. Upper GI endoscopy with;. a. Excision of mucosal bands across small bowel adjacent to gastrojejunostomy (85172). b. Dilation of gastrojejunostomy (03780). ANESTHESIA: IV sedation. VALIDATION CONSULTANT: BRODY Ruiz. INDICATION FOR PROCEDURE: The patient presents with a chronically inflamed epidermoid cyst on left neck. She is also having some increasing dysphagia status post a high-partial gastrectomy for recurrent gastroesophageal reflux disease with a George-en-Y reconstruction. Plan is to proceed with excision of the epidermoid cyst and then upper endoscopy with biopsy, dilation, or other procedures as indicated. Potential risks including bleeding, infection, and perforation at the time of upper endoscopy were reviewed, and the patient wishes to proceed. DETAILS OF PROCEDURE: The patient was taken to the operating room and placed in a supine position. After IV sedation was administered, the left neck and surrounding areas were prepped and draped. The area of the cyst had been marked out and that area anesthetized with 1% lidocaine mixed with Marcaine. A transversely-oriented elliptical incision was made and carried down through the skin and subcutaneous tissue. The cystic lesion was then removed intact with a small amount of normal tissue around the lesion. The incision was then closed with some 5-0 Vicryl stitch deep and then a 5-0 Prolene skin stitch. Dressing was then applied. The margin plus lesion length was 0.8 cm, and the incision length was 2.4 cm. The patient was then placed in a left lateral decubitus position. The upper GI endoscope was passed orally through the length of the esophagus and into the area of the gastric pouch and gastrojejunostomy. The patient was noted to have mild narrowing of the gastrojejunostomy. The most predominant finding was that of 2 mucosal bands that extended between the 2 sides of the George limb just adjacent to the gastrojejunostomy. These likely would act something like a "fishnet" effect, trapping food that is not extremely small in terms of particle size. The mucosa was then excised, dividing the bands on their right and left sides and, in each case, with the band being perhaps in the range of 3 mm in diameter. The intervening tissue was essentially obliterated during the excision process, but there was no concern of this being neoplastic by any means. Good hemostasis was confirmed at this point. Then, a Bard gastrointestinal balloon catheter was then centered across the gastrojejunostomy and inflated to 54-Turkmen size. This was held in position for one minute, after which, the balloon catheter was deflated and withdrawn. A small amount of dilation was confirmed. The procedure was then concluded. The patient was taken to the recovery room in a satisfactory condition. Feliciano Azul MD /[id number]
== END 2017-10-26 12:30 | disposition home or self-care (01) ==
LOC: JP.SDS 06:38
PROVIDERS: ATTEND Surgery
DX: K95.09 Other complications of gastric band procedure (principal); K91.89 Other postprocedural complications and disorders of digestive system; L82.1 Other seborrheic keratosis; I10 Essential (primary) hypertension; E11.9 Type 2 diabetes mellitus without complications; J45.909 Unspecified asthma, uncomplicated; K21.9 Gastro-esophageal reflux disease without esophagitis; Z98.84 Bariatric surgery status
CPT/HCPCS: 11421; 12041; 43245; 43999; J2250; J2704; J3010; J7042; 88305; J3490

== ENCOUNTER 2017-11-05 14:02 | Emergency (ER) | payer MEDICAID ==
[2017-11-05 16:00] VITALS: BP 132/82
== END 2017-11-05 18:38 | disposition left against medical advice (07) ==
LOC: JP.ED 14:02
DX: Z53.21 Procedure and treatment not carried out due to patient leaving prior to being seen by health care provider (principal)

== ENCOUNTER 2018-06-13 07:01 | Day surgery (SDC) | payer MEDICAID ==
[2018-06-13] MEDS ORDERED: Lactated Ringers 1,000 ML IV ONE (07:20)
[2018-06-13] MEDS ORDERED: Cyanocobalamin (Vitamin B12) 1,000 MCG/ML SDV IM ONE (07:30)
[2018-06-13] MEDS ORDERED: MVI, Adult with Vitamin K 10 ML, Thiamine 100 MG, Chromium/Copper/Mang/Zinc 1 ML in Dex... IV ONE ×4 (08:00)
[2018-06-13] MEDS ORDERED: Glycopyrrolate 0.2 MG/ML 2 ML SDV IVPUSH ONE (08:00)
[2018-06-13] MEDS ORDERED: fentaNYL 100 MCG/2 ML SDV ONE (08:41)
[2018-06-13] MEDS ORDERED: Midazolam 1 MG/ML 2 ML SDV ONE (08:41)
[2018-06-13] MEDS ORDERED: Propofol 200 MG/20 ML SDV ONE (08:41)
[2018-06-13 10:59] VITALS: BP 129/78
--- NOTE | 2018-06-18 11:59 | OR ---
DATE OF PROCEDURE: 06/13/2018 PREOPERATIVE DIAGNOSES: Dysphagia and heartburn. POSTOPERATIVE DIAGNOSES: Dysphagia and heartburn associated with normal endoscopic examination, status post partial gastrectomy with George-en-Y gastrojejunostomy. OPERATIVE PROCEDURE: Upper GI endoscopy with dilation of the gastrojejunostomy (54-Eritrean dilator had minimal effect) (47025). ANESTHESIA: IV sedation. INDICATIONS FOR PROCEDURE: A 47-year-old status post a partial gastrectomy with George-en-Y reconstruction for recurrent gastroesophageal reflux disease. She is having some increasing problems with dysphagia and a sense of heartburn. She presently is being maintained on the omeprazole 20 mg b.i.d. and some Zofran ODT on a p.r.n. basis. Plan is to proceed with upper GI endoscopy with biopsies and dilation as indicated. Potential risks including bleeding and perforation were discussed, and the patient wishes to proceed. DETAILS OF PROCEDURE: The patient was taken to the operating room, placed in a left lateral decubitus position. IV sedation was administered, after which the upper GI endoscope was passed orally through the length of the esophagus and into the gastric pouch, and from there through the gastrojejunostomy roughly 20 cm into the George limb. Overall, the findings were entirely normal. There was no area of inflammation at any point seen along the course of the exam. The gastrojejunostomy was also widely patent. We did deploy a 54-Eritrean balloon dilator across the gastrojejunostomy, but because it already had fairly good size and minimal side effect, the scope was then withdrawn. The above findings were reconfirmed, and the procedure was then concluded. Continue present medication management and give a trial of Levsin 0.125 mg sublingually q.6 hours p.r.n. as her symptoms may be reflective of esophageal spasm. She will be following up with Sarah Sebastian in roughly 1 month at [facility]. Feliciano Azul MD Job #: [id number]
== END 2018-06-13 11:10 | disposition home or self-care (01) ==
LOC: JP.SDS 07:01
PROVIDERS: ATTEND Surgery
DX: R13.10 Dysphagia, unspecified (principal); K21.9 Gastro-esophageal reflux disease without esophagitis; I10 Essential (primary) hypertension; E11.9 Type 2 diabetes mellitus without complications; Z98.84 Bariatric surgery status; Z90.3 Acquired absence of stomach [part of]
CPT/HCPCS: 43245; J2250; J2704; J3010; J3411; J3420; J3490; J7042; J7120

== ENCOUNTER 2019-04-28 07:11 | Day surgery (SDC) | payer MEDICAID ==
[~2019-04-28 07:11] MED LIST changes: +Bupivacaine 0.5% 50 ML MDV ONE; +Lidocaine 1% with EPINEPHrine 1:100,000 50 ML MDV ONE; -Midazolam 1 MG/ML 2 ML SDV ONE; -Propofol 200 MG/20 ML SDV ONE; -fentaNYL 100 MCG/2 ML SDV ONE
[2019-04-28] MEDS ORDERED: Dextrose 5%-Lactated Ringers 1,000 ML IV SCH (07:45)
[2019-04-28] MEDS ORDERED: Clindamycin Phosphate 900 MG in Sodium Chloride 0.9% 100 ML IV ONE (07:45)
[2019-04-28] MEDS ORDERED: Midazolam 1 MG/ML 2 ML SDV ONE (07:47)
[2019-04-28] MEDS ORDERED: Propofol 200 MG/20 ML SDV ONE (07:47)
[2019-04-28] MEDS ORDERED: fentaNYL 100 MCG/2 ML SDV ONE (07:47)
[2019-04-28] MEDS ORDERED: Lidocaine 1% 2 ML ONE (08:30)
[2019-04-28] MEDS ORDERED: Lidocaine 1% with EPINEPHrine 1:100,000 50 ML MDV INJECT ONE (09:00)
[2019-04-28] MEDS ORDERED: Bacitracin Oint 1 GM U/D Packet ONE (09:04)
[2019-04-28 10:21] VITALS: BP 132/83; PULSE 92
--- NOTE | 2019-05-02 11:12 | OR ---
DATE OF PROCEDURE: 04/28/2019 SURGEON: Feliciano Azul MD PREOPERATIVE DIAGNOSIS: Inflammatory skin lesions, left forearm, x3. POSTOPERATIVE DIAGNOSIS: Inflammatory skin lesions, left forearm, x3. OPERATIVE PROCEDURES: 1. Excision of inflammatory skin lesion, distal left forearm, with layered closure (01498, 09705). 2. Excision of inflammatory skin lesion, midportion of left forearm, with layered closure (99086, 13789). 3. Excision of inflammatory skin lesion, proximal left forearm, with layered closure (72703, 33223). ANESTHESIA: Local plus IV sedation. CLINICAL TRIAL SPECIALIST: Robby Chakraborty MS-3. INDICATION FOR PROCEDURE: This is a 48-year-old presenting with 3 skin lesions on her left forearm, all of which have been persistently inflamed. All 3 of them have somewhat of linear configuration. After discussion, she wished to proceed with excision. Potential risks including bleeding, infection, possible recurrence of the problems over time were reviewed, and the patient wishes to proceed. DETAILS OF PROCEDURE: The patient was taken to the operating room and placed in a supine position. After IV sedation was administered, the left forearm was then prepped and draped, and the 3 lesions anesthetized with 1% lidocaine mixed with Marcaine. In each case, the elliptical incision over the long access of the lesion was made, and then lesion removed with small amount of normal skin around it. The process did not extend significantly into the subcutaneous tissue in each case. Then, the deeper layers were closed with some 4-0 Vicryl stitch and then the skin with a 5-0 Prolene skin stitch. The distal forearm lesion had a bxcdov-kvst-uvkksq length of 2.3 cm and incision length of 3.0 cm. The mid-forearm lesion had a ksqtyk-kohf-yvvojf length of 2.5 cm and incision length of 3.4 cm. The proximal forearm lesion had a ldwgdy-wlps-ahupdj length of 4.0 cm and incision length of 5.5 cm. Dressings were applied. The patient was taken to the recovery room in satisfactory condition. Feliciano Azul MD Job #: [id number]
== END 2019-04-28 10:30 | disposition home or self-care (01) ==
LOC: JP.SDS 07:11
PROVIDERS: ATTEND Surgery
DX: L28.0 Lichen simplex chronicus (principal); I10 Essential (primary) hypertension; Z88.8 Allergy status to other drugs, medicaments and biological substances; Z91.018 Allergy to other foods; Z88.1 Allergy status to other antibiotic agents; Z88.0 Allergy status to penicillin; Z91.010 Allergy to peanuts; Z91.048 Other nonmedicinal substance allergy status; Z91.013 Allergy to seafood
CPT/HCPCS: 88305; J2001; J2250; J2704; J3010; J3490; J7030; J7042

== ENCOUNTER 2020-11-19 11:51 | Emergency (ER) | payer OTHER, MEDICAID ==
[2020-11-19 12:12] VITALS: BP 141/90; PULSE 98
--- NOTE | 2020-11-19 12:30 | EDM.PDOC ---
ED HPI GENERAL MEDICAL PROBLEM - General Chief Complaint: Skin Complaint Stated Complaint: INFECTION ON LEFT CALF Time Seen by Provider: 11/19/20 12:25 Source of Information: Reports: Patient History Limitations: Reports: No Limitations - History of Present Illness INITIAL COMMENTS - FREE TEXT/NARRATIVE: This is a 50 year old female presenting for evaluation of a wound on her left lower extremity. patient reports the wound first developed about 1 to 1.5 months ago. She states that she had gotten a new tattoo and subsequently developed some open sores/skin lesions on her entire body. The rest have scabbed over and healed, but this one isn't healing. She reports that over the past one week she has noticed some redness around the area. She was evaluated in urgent care 4 day s ago and prescribed an oral antibiotic and an antibiotic ointment. She reports no improvement of her symptoms since then. She has some mild pain at the site of the wound, but no other symptoms. no fever or chills. no numbness, tingling, or weakness. - Related Data Allergies Allergy/AdvReac Type Severity Reaction Status Date / Time peanut Allergy Severe Anaphylactic Verified 11/19/20 12:12 Shock prochlorperazine edisylate Allergy Severe swelling Verified 11/19/20 12:12 [From Compazine] throat amoxicillin [Amoxicillin] Allergy Hives Verified 11/19/20 12:12 beeswax Allergy Other Verified 11/19/20 12:12 cefadroxil [Cefadroxil] Allergy Cannot Verified 11/19/20 12:12 Remember cephalexin monohydrate Allergy Hives Verified 11/19/20 12:12 [From Keflex] Cephalosporins Allergy Hives Verified 11/19/20 12:12 garlic [From Garlique] Allergy Hives Verified 11/19/20 12:12 gluten Allergy Other Verified 11/19/20 12:12 levofloxacin [From Levaquin] Allergy Rash Verified 11/19/20 12:12 lisinopril Allergy Rash Verified 11/19/20 12:12 NSAIDS (Non-Steroidal Allergy Cannot Verified 11/19/20 12:12 Anti-Inflamma Remember Penicillins Allergy Rash Verified 11/19/20 12:12 prochlorperazine maleate Allergy Cannot Verified 11/19/20 12:12 [From Compazine] Remember promethazine Allergy Hives Verified 11/19/20 12:12 shellfish derived Allergy Hives Verified 11/19/20 12:12 strawberry [[place]] Allergy Hives Verified 11/19/20 12:12 tolmetin Allergy Cannot Verified 11/19/20 12:12 Remember metformin AdvReac Diarrhea Verified 11/19/20 12:12 Home Meds: Home Meds Magnesium Oxide [Magnesium] 400 mg PO TID 02/26/15 [History] Cholecalciferol (Vitamin D3) [Vitamin D3] 50,000 unit PO DAILY 03/30/17 [History] ClonazePAM [KlonoPIN] 0.5 mg PO BID PRN 03/30/17 [History] Aspirin 81 mg PO DAILY 10/25/17 [History] Benzonatate 200 mg PO TID PRN 10/25/17 [History] Sertraline [Zoloft] 200 mg PO DAILY 10/25/17 [History] Cyanocobalamin (Vitamin B-12) [Cyanocobalamin Injection] 1,000 mcg IM Q7D 06/13/18 [History] Hydrocodone/Acetaminophen [[place] 5-325 Tablet] 1 tab PO Q8H PRN 06/13/18 [History] Omeprazole 20 mg PO BID 06/13/18 [History] Sodium Chloride [[place]] 2 spray ARIELLE Q2H PRN 06/13/18 [History] Torsemide [Demadex] 10 mg PO DAILY 06/13/18 [History] Cyclobenzaprine [Flexeril] 10 mg PO TID PRN 04/23/19 [History] Hyoscyamine [Levsin] 0.125 mg PO Q6H PRN 04/23/19 [History] Pediatric Multivitamin No.76 [Flintstones Complete] 1 each PO BID 04/23/19 [History] hydrOXYzine HCL [Atarax] 25 mg PO BEDTIME PRN 04/23/19 [History] ondansetron HCL [Zofran] 4 mg PO Q8H PRN 04/23/19 [History] Sulfamethoxazole/Trimethoprim [Sulfamethoxazole-Tmp Ds Tablet] 1 tab PO BID 11/19/20 [History] Past Medical History HEENT History: Reports: Other (See Below) Other HEENT History: needs glasses Cardiovascular History: Reports: High Cholesterol, Hypertension Respiratory History: Reports: Asthma, Other (See Below) Other Respiratory History: asthma as a child Gastrointestinal History: Reports: Chronic Diarrhea, GERD, Irritable Bowel Syndrome, Pancreatitis Other Gastrointestinal History: liver problems/ pancreatitis, fatty liver, CUEVAS (nonalcoholic steatohepatitis) Genitourinary History: Reports: Diabetic Nephropathy, UTI, Recurrent Other Genitourinary History: previous diabetic [employer] History: Reports: Other [employer] History: bilateral breast reduction Musculoskeletal History: Reports: Arthritis, Back Pain, Chronic, Fracture, Fibromyalgia, Osteoporosis Neurological History: Reports: CVA, Neuropathy, Diabetic, TIA, Other (See Below) Other Neuro History: subdural hematoma after "pain pump surgery" Psychiatric History: Reports: Anxiety, Depression, Suicide Attempt, Other (See Below) Other Psychiatric History: opiod dependence Endocrine/Metabolic History: Reports: Diabetes, Type II, Obesity/BMI 30+, [place] min D Deficiency, Other (See Below) Other Endocrine/Metabolic History: hypokalemia Hematologic History: Reports: Anemia, B12 Deficiency, Blood Transfusion(s), Hemochromatosis Dermatologic History: Reports: Other (See Below) Other Dermatologic History: history necrotizing fasciitis - Infectious Disease History Infectious Disease History: Reports: Chicken Pox, Hepatitis non A,B,C, Influenza Other Infectious Disease History: "non alcoholic steato hepatitis" - Past Surgical History Head Surgeries/Procedures: Reports: None HEENT Surgical History: Reports: Oral Surgery Cardiovascular Surgical History: Reports: Other (See Below) Other Cardiovascular Surgeries/Procedures: angiogram Respiratory Surgical History: Reports: None GI Surgical History: Reports: Bariatric Procedure, Cholecystectomy, Colonoscopy, EGD, Esophageal Dilatation Other GI Surgeries/Procedures: partial gastrectomy 2015 Female Surgical History: Reports: Breast Biopsy, Breast Reduction, Hysterectomy Endocrine Surgical History: Reports: None Neurological Surgical History: Reports: Other (See Below) Other Neurological Surgeries/Procedures: "pain pump in spine" lower back according to patient. lower back nervie stimulator 2017 to present Musculoskeletal Surgical History: Reports: Other (See Below) Other Musculoskeletal Surgeries/Procedures:: "nerve fixed left leg" Dermatological Surgical History: Reports: None Social & Family History - Family History Family Medical History: No Pertinent Family History - Tobacco Use Tobacco Use Status *Q: Never Tobacco User Second Hand Smoke Exposure: No - Caffeine Use Caffeine Use: Reports: Soda - Recreational Drug Use Recreational Drug Use: No - Living Situation & Occupation Living situation: Reports: Single, with Family Occupation: Disabled (lives in [place], [place]. with Mom, and adult daughter) ED ROS GENERAL - Review of Systems Review Of Systems: Comprehensive ROS is negative, except as noted in HPI. ED EXAM, SKIN/RASH Exam: See Below Exam Limited By: No Limitations General Appearance: Alert, No Apparent Distress Head: Atraumatic, Normocephalic Neck: Non-Tender, Full Range of Motion Respiratory/Chest: No Respiratory Distress, No Accessory Muscle Use Cardiovascular: Normal Peripheral Pulses Peripheral Pulses: 2+: Posterior Tibial (L), Posterior Tibial (R), Dorsalis Pedis (L), Dorsalis Pedis (R) Extremities: Other (LLE with 1 cm circular wound noted to medial calf with minimal surrounding erythema and no warmth. no drainage noted. no lower extremity edema) Neurological: Alert, Oriented, No Motor/Sensory Deficits Psychiatric: Normal Affect, Normal Mood Skin: Warm, Dry, Normal Color, Other (extremities are warm and well perfused.) Course - Vital Signs Last Recorded V/S: Last Vital Signs Temp 97.6 F 11/19/20 12:18 Pulse 98 11/19/20 12:18 Resp 16 11/19/20 12:18 BP 141/90 H 11/19/20 12:18 Pulse Ox 98 11/19/20 12:18 Departure - Departure Time of Disposition: 12:44 Disposition: Home, Self-Care 01 Clinical Impression: Cellulitis, Wound of lower extremity - Discharge Information *PRESCRIPTION DRUG MONITORING PROGRAM REVIEWED*: Not Applicable *COPY OF PRESCRIPTION DRUG MONITORING REPORT IN PATIENT NATALIYA: Not Applicable Instructions: Cellulitis, Adult Additional Instructions: There is no evidence of spreading infection at this time. Continue the anti biotics as previously prescribed. Continue using the topical antibiotic ointment as well. Follow up in clinic early next week for recheck. If you develop worsening pain, increased swelling, spreading redness, fever, or other concerning symptoms, please return to the ED for reassessment. Sepsis Event Note (ED) - Evaluation Sepsis Screening Result: No Definite Risk - Focused Exam Vital Signs: Vital Signs Temp Pulse Resp BP Pulse Ox 11/19/20 12:18 97.6 F 98 16 141/90 H 98 11/19/20 12:11 97.6 F 98 16 141/90 H 98 - Problem List Review Problem List Initiated/Reviewed/Updated: Yes - Assessment/Plan Plan: This is a 50 year old female presenting with a non-healing wound on her LLE. The wound is quite small (~1cm) without evidence of abscess or cellulitis at this time. There in no evidence of necrotizing skin/soft tissue infection. Her extremities are warm and well perfused with good distal pulses present so I do not feel this lesion is related to PAD. There is no evidence of venous insufficiency on exam at this time. There does not appear to be any significant infection present at this time that would require additional antibiotics or IV antibiotics. I think it is reasonable for her to finish her current course of antibiotics as previously prescribed and monitor for signs of worsening infection. She will follow up with PCP in 3 days for wound recheck. will return to the ED if she develops spreading erythema, increased swelling, warmth, purulent drainage, or fever.
== END 2020-11-19 12:42 | disposition home or self-care (01) ==
LOC: JP.ED 11:51
DX: S81.802A Unspecified open wound, left lower leg, initial encounter (principal); L03.116 Cellulitis of left lower limb; I10 Essential (primary) hypertension; K21.9 Gastro-esophageal reflux disease without esophagitis; E11.21 Type 2 diabetes mellitus with diabetic nephropathy; E66.9 Obesity, unspecified; E11.40 Type 2 diabetes mellitus with diabetic neuropathy, unspecified; Z68.24 Body mass index [BMI] 24.0-24.9, adult; Z79.82 Long term (current) use of aspirin; Z88.0 Allergy status to penicillin; Z88.1 Allergy status to other antibiotic agents; Z88.5 Allergy status to narcotic agent; Z91.018 Allergy to other foods; Z91.013 Allergy to seafood; X58.XXXA Exposure to other specified factors, initial encounter
CPT/HCPCS: 99282; 99283

== ENCOUNTER 2021-07-07 12:21 | Emergency (ER) | payer OTHER, MEDICAID ==
[2021-07-07 13:54] VITALS: BP 133/84; PULSE 77
== END 2021-07-07 14:10 | disposition home or self-care (01) ==
LOC: JP.ED 12:21
DX: L03.116 Cellulitis of left lower limb (principal); E78.00 Pure hypercholesterolemia, unspecified; I10 Essential (primary) hypertension; J45.909 Unspecified asthma, uncomplicated; K21.9 Gastro-esophageal reflux disease without esophagitis; E11.40 Type 2 diabetes mellitus with diabetic neuropathy, unspecified; E66.9 Obesity, unspecified; Z68.23 Body mass index [BMI] 23.0-23.9, adult; Z86.73 Personal history of transient ischemic attack (TIA), and cerebral infarction without residual deficits; Z91.010 Allergy to peanuts; Z88.0 Allergy status to penicillin; Z88.8 Allergy status to other drugs, medicaments and biological substances; Z88.1 Allergy status to other antibiotic agents; Z79.82 Long term (current) use of aspirin; Z79.899 Other long term (current) drug therapy
CPT/HCPCS: 99283

== ENCOUNTER 2021-08-01 06:26 | Day surgery (SDC) | payer OTHER, MEDICAID ==
[2021-08-01] MEDS ORDERED: Lactated Ringers 1,000 ML IV ONE (07:00)
[2021-08-01] MEDS ORDERED: Propofol 200 MG/20 ML SDV ONE (07:07)
[2021-08-01] MEDS ORDERED: fentaNYL 100 MCG/2 ML SDV ONE (07:08)
[2021-08-01] MEDS ORDERED: Midazolam 1 MG/ML 2 ML SDV ONE (07:08)
[2021-08-01] MEDS ORDERED: Cyanocobalamin (Vitamin B12) 1,000 MCG/ML SDV IM ONE (07:30)
[2021-08-01] MEDS ORDERED: Glycopyrrolate 0.2 MG/ML 2 ML SDV IVPUSH ONE (07:30)
[2021-08-01] MEDS ORDERED: MVI, Adult with Vitamin K 10 ML, Thiamine 200 MG, Zinc/Copper/Manganese/Selenium 1 ML i... IV ONE ×4 (08:00)
[2021-08-01 09:38] VITALS: BP 121/80; PULSE 93
== END 2021-08-01 11:52 | disposition home or self-care (01) ==
LOC: JP.SDS 06:26
PROVIDERS: ATTEND Surgery
DX: R13.10 Dysphagia, unspecified (principal); K58.9 Irritable bowel syndrome, unspecified; I10 Essential (primary) hypertension; E11.9 Type 2 diabetes mellitus without complications; F41.9 Anxiety disorder, unspecified; F32.A Depression, unspecified; Z98.890 Other specified postprocedural states; Z86.73 Personal history of transient ischemic attack (TIA), and cerebral infarction without residual deficits
CPT/HCPCS: J2250; J2704; J3010; J3411; J3420; J3490; J7120

== ENCOUNTER 2022-01-31 17:36 | Emergency (ER) | payer MEDICARE, MEDICAID ==
[2022-01-31 18:01] VITALS: BP 121/77; PULSE 115
[2022-01-31] MEDS ORDERED: Sodium Chloride 0.9% 10 ML Syringe FLUSH PRN (18:31)
[2022-01-31] MEDS ORDERED: Sodium Chloride 0.9% 1,000 ML IV SCH ×2 (18:45→20:15)
[2022-01-31 19:04] LABS: ESTIMATED GFR 27 mL/min (>60)
[2022-01-31] MEDS ORDERED: Potassium Chloride 20 MEQ Tab.ER PO ONE (20:09)
== END 2022-01-31 20:46 | disposition home or self-care (01) ==
LOC: JP.ED 17:36
DX: N20.0 Calculus of kidney (principal); E86.0 Dehydration; E87.6 Hypokalemia; D64.9 Anemia, unspecified; E78.00 Pure hypercholesterolemia, unspecified; I10 Essential (primary) hypertension; K21.9 Gastro-esophageal reflux disease without esophagitis; E11.40 Type 2 diabetes mellitus with diabetic neuropathy, unspecified; Z86.73 Personal history of transient ischemic attack (TIA), and cerebral infarction without residual deficits; Z88.1 Allergy status to other antibiotic agents; Z91.09 Other allergy status, other than to drugs and biological substances; Z91.013 Allergy to seafood; Z96.0 Presence of urogenital implants
CPT/HCPCS: 36415; 80053; 81001; 85025; 96360; 99283; A9270; J3490; J7030

== ENCOUNTER 2022-06-16 06:27 | Day surgery (SDC) | payer MEDICARE, MEDICAID ==
[2022-06-16] MEDS ORDERED: Lactated Ringers 1,000 ML IV SCH (07:00)
[2022-06-16] MEDS ORDERED: Midazolam 1 MG/ML 2 ML SDV ONE (07:11)
[2022-06-16] MEDS ORDERED: Propofol 200 MG/20 ML SDV ONE ×2 (07:11→10:29)
[2022-06-16] MEDS ORDERED: fentaNYL 50 MCG/ML SDV ONE (07:11)
[2022-06-16 09:39] VITALS: BP 139/84; PULSE 88
== END 2022-06-16 10:11 | disposition home or self-care (01) ==
LOC: JP.SDS 06:27
PROVIDERS: ATTEND Student in an Organized Health Care Education/Training Program
DX: R19.7 Diarrhea, unspecified (principal); I10 Essential (primary) hypertension; E78.00 Pure hypercholesterolemia, unspecified; F41.9 Anxiety disorder, unspecified; F32.A Depression, unspecified; E11.9 Type 2 diabetes mellitus without complications; Z79.899 Other long term (current) drug therapy; Z88.0 Allergy status to penicillin; Z88.1 Allergy status to other antibiotic agents; Z88.8 Allergy status to other drugs, medicaments and biological substances; Z88.5 Allergy status to narcotic agent
CPT/HCPCS: 45380; 88305; J2250; J2704; J3010; J7120

== ENCOUNTER 2022-12-12 07:52 | Day surgery (SDC) | payer MEDICARE, MEDICAID ==
[2022-12-12 08:14] VITALS: BP 142/77; PULSE 67
[2022-12-12] MEDS ORDERED: Dextrose 5%-Lactated Ringers 1,000 ML IV SCH (08:30)
[2022-12-12] MEDS ORDERED: Propofol 200 MG/20 ML SDV ONE (08:56)
[2022-12-12] MEDS ORDERED: fentaNYL 50 MCG/ML SDV ONE (08:56)
[2022-12-12] MEDS ORDERED: Midazolam 1 MG/ML 2 ML SDV ONE (08:56)
== END 2022-12-12 11:15 | disposition home or self-care (01) ==
LOC: JP.SDS 07:52
PROVIDERS: ATTEND Surgery
DX: Z12.11 Encounter for screening for malignant neoplasm of colon (principal); I10 Essential (primary) hypertension; F41.9 Anxiety disorder, unspecified; F32.A Depression, unspecified; K90.9 Intestinal malabsorption, unspecified; E11.9 Type 2 diabetes mellitus without complications; F11.21 Opioid dependence, in remission; Z53.8 Procedure and treatment not carried out for other reasons
CPT/HCPCS: J2250; J2704; J3010; J7121

== ENCOUNTER 2023-02-04 18:47 | Emergency (ER) | payer MEDICARE, MEDICAID ==
[2023-02-04 19:09] VITALS: BP 140/77; PULSE 75
== END 2023-02-04 19:49 | disposition home or self-care (01) ==
LOC: JP.ED 18:47
DX: S61.211A Laceration without foreign body of left index finger without damage to nail, initial encounter (principal); E78.00 Pure hypercholesterolemia, unspecified; I10 Essential (primary) hypertension; J45.909 Unspecified asthma, uncomplicated; K21.9 Gastro-esophageal reflux disease without esophagitis; E11.9 Type 2 diabetes mellitus without complications; Z86.16 Personal history of COVID-19; Z79.899 Other long term (current) drug therapy; Z79.82 Long term (current) use of aspirin; Z88.0 Allergy status to penicillin; Z88.1 Allergy status to other antibiotic agents; Z88.5 Allergy status to narcotic agent; Z88.6 Allergy status to analgesic agent; Z88.8 Allergy status to other drugs, medicaments and biological substances; Z91.013 Allergy to seafood; Z91.018 Allergy to other foods; W26.0XXA Contact with knife, initial encounter
CPT/HCPCS: 12001; 99282

== ENCOUNTER 2023-03-12 15:47 | Emergency (ER) | payer MEDICARE, MEDICAID ==
[2023-03-12 16:17] VITALS: BP 116/77
[2023-03-12 16:36] VITALS: PULSE 93
[2023-03-12] MEDS ORDERED: Sodium Chloride 0.9% 10 ML Syringe FLUSH PRN (16:45)
[2023-03-12] MEDS ORDERED: Ketorolac 15 MG/ML SDV IVPUSH ONE ×2 (16:45→17:59)
[2023-03-12] MEDS ORDERED: Sodium Chloride 0.9% 1,000 ML IV ONE (16:46)
[2023-03-12 17:10] LABS: BASOPHILS PERCENT AUTO 0.3 % (0.1-1.3); EOSINOPHILS ABSOLUTE AUTO 0.03 K/uL (0.00-0.40); EOSINOPHILS PERCENT AUTO 0.4 % (0.0-5.4); HEMATOCRIT 30.1 % (34.3-46.0); HEMOGLOBIN 9.3 g/dL (11.2-15.5); IMMATURE GRAN PERCENT AUTO 0.3 % (0.0-0.7); LYMPHOCYTES ABSOLUTE AUTO 1.81 K/uL (0.8-3.3); LYMPHOCYTES PERCENT AUTO 26.4 % (11.4-47.7); MEAN CORPUSCULAR HEMOGLOBIN 25.1 pg (31.6-35.5); MEAN CORPUSCULAR HGB CONC 30.9 g/dL (31.6-35.5); MEAN CORPUSCULAR VOLUME 81.4 fL (81.4-99.0); MONOCYTES ABSOLUTE AUTO 0.73 K/uL (0.20-0.90); MONOCYTES PERCENT AUTO 10.7 % (3.3-12.6); NEUTROPHILS ABSOLUTE AUTO 4.24 K/uL (1.0-7.6); NEUTROPHILS PERCENT AUTO 61.9 % (40.0-78.1); PLATELET COUNT,PLT 174 K/uL (130-375); WHITE BLOOD CELL COUNT,WBC 6.9 K/uL (3.2-11.0)
[2023-03-12 17:11] LABS: BASOPHILS ABSOLUTE AUTO 0.02 K/uL (0.00-0.10); IMMATURE GRAN ABSOLUTE AUTO 0.02 K/uL (0.00-0.23)
[2023-03-12 17:27] LABS: C-REACTIVE PROTEIN 5.32 mg/dL (0.0-0.3); CALCIUM 8.4 mg/dL (8.5-10.1); CREATININE 1.3 mg/dL (0.6-1.0); EST CRCL DRUG DOSING (CG) 47.93 mL/min; POTASSIUM,K 3.9 mmol/L (3.6-5.2)
[2023-03-12 17:28] LABS: ANION GAP 11.9 mmol/L (5.0-14.0)
[2023-03-12 18:30] LABS: APPEARANCE,URINE SLIGHTLY CLOUDY (CLEAR); COLOR,URINE ORANGE (YELLOW)
[2023-03-12 18:35] LABS: AMORPHOUS SEDIMENT,URINE MODERATE; BACTERIA,URINE MANY; EPITHELIAL CELLS,URINE MANY; MUCUS,URINE FEW
== END 2023-03-12 19:02 | disposition home or self-care (01) ==
LOC: JP.ED 15:47
DX: N39.0 Urinary tract infection, site not specified (principal); E78.00 Pure hypercholesterolemia, unspecified; J45.909 Unspecified asthma, uncomplicated; I10 Essential (primary) hypertension; M19.90 Unspecified osteoarthritis, unspecified site; K21.9 Gastro-esophageal reflux disease without esophagitis; E11.40 Type 2 diabetes mellitus with diabetic neuropathy, unspecified; Z86.16 Personal history of COVID-19; Z86.73 Personal history of transient ischemic attack (TIA), and cerebral infarction without residual deficits; Z79.84 Long term (current) use of oral hypoglycemic drugs; Z79.82 Long term (current) use of aspirin; Z79.899 Other long term (current) drug therapy; Z91.018 Allergy to other foods; Z91.013 Allergy to seafood; Z88.8 Allergy status to other drugs, medicaments and biological substances; Z88.1 Allergy status to other antibiotic agents; Z91.010 Allergy to peanuts; Z88.0 Allergy status to penicillin
CPT/HCPCS: 36415; 74176; 80048; 81001; 85025; 86140; 87086; 96361; 96374; 96376; 99284; J1885; J7030

== ENCOUNTER 2024-01-21 09:50 | Emergency (ER) | payer MEDICARE, MEDICAID ==
[2024-01-21] MEDS ORDERED: Sodium Chloride 0.9% 10 ML Syringe FLUSH PRN (10:06)
[2024-01-21] MEDS: Nitroglycerin 0.4 MG Tab.SL SL PRN (10:15)
[2024-01-21] MEDS: Aspirin 81 MG Tab.Chew PO ONE (10:15)
[2024-01-21 10:16] LABS: BASOPHILS ABSOLUTE AUTO 0.04 K/uL (0.00-0.10); BASOPHILS PERCENT AUTO 0.5 % (0.1-1.3); EOSINOPHILS ABSOLUTE AUTO 0.06 K/uL (0.00-0.40); EOSINOPHILS PERCENT AUTO 0.7 % (0.0-5.4); HEMATOCRIT 42.4 % (34.3-46.0); HEMOGLOBIN 15.4 g/dL (11.2-15.5); IMMATURE GRAN ABSOLUTE AUTO 0.03 K/uL (0.00-0.23); IMMATURE GRAN PERCENT AUTO 0.4 % (0.0-0.7); LYMPHOCYTES ABSOLUTE AUTO 2.53 K/uL (0.8-3.3); LYMPHOCYTES PERCENT AUTO 29.9 % (11.4-47.7); MEAN CORPUSCULAR HEMOGLOBIN 30.6 pg (31.6-35.5); MEAN CORPUSCULAR HGB CONC 36.3 g/dL (31.6-35.5); MEAN CORPUSCULAR VOLUME 84.3 fL (81.4-99.0); MONOCYTES ABSOLUTE AUTO 0.42 K/uL (0.20-0.90); NEUTROPHILS ABSOLUTE AUTO 5.38 K/uL (1.0-7.6); NEUTROPHILS PERCENT AUTO 63.5 % (40.0-78.1); PLATELET COUNT,PLT 160 K/uL (130-375); RED BLOOD CELL COUNT 5.03 M/uL (3.77-5.24); WHITE BLOOD CELL COUNT,WBC 8.5 K/uL (3.2-11.0)
[2024-01-21 10:39] LABS: A/G RATIO 0.9 (1.2-2.2); ALANINE AMINOTRANSFERASE,ALT 34 U/L (12-78); ALBUMIN 3.9 g/dL (3.4-5.0); ALKALINE PHOSPHATASE 121 U/L (46-116); ANION GAP 17.3 mmol/L (5.0-14.0); ASPARTATE AMNIOTRANSFERASE,AST 32 U/L (15-37); BILIRUBIN TOTAL 0.6 mg/dL (0.2-1.0); BLOOD UREA NITROGEN,BUN 15 mg/dL (7-18); CALCIUM 9.9 mg/dL (8.5-10.1); CARBON DIOXIDE,CO2 23 mmol/L (21-32); CHLORIDE,CL 98 mmol/L (100-108); CREATININE 1.2 mg/dL (0.6-1.0); EST CRCL DRUG DOSING (CG) 51.34 mL/min; ESTIMATED GFR 54 mL/min (>60); GLUCOSE RANDOM 331 mg/dL (74-106); POTASSIUM,K 4.3 mmol/L (3.6-5.2); PROTEIN TOTAL,TP 8.4 g/dL (6.4-8.2); SODIUM,NA 134 mmol/L (140-148); TROPONIN I HIGH SENSITIVITY 2124.3 pg/mL (<=60.3)
[2024-01-21] MEDS: Morphine 4 MG/ML Syringe IVPUSH PRN (10:52)
[2024-01-21] MEDS: Heparin Sodium 5,000 Units/ML Vial IVPUSH ONE (10:55)
[2024-01-21] MEDS: Heparin Sodium/D5W 25,000 UNITS/500 ML BAG IV SCH (10:59)
[2024-01-21 11:02] LABS: PROTHROMBIN TIME 10.2 sec (9.2-10.6); PTT,PARTIAL THROMBOPLSTIN TIME 26.7 sec (21.8-27.3)
[2024-01-21 19:03] VITALS: BP 118/72; PULSE 83
== END 2024-01-21 19:11 ==
LOC: JP.ED 09:50
DX: I21.4 Non-ST elevation (NSTEMI) myocardial infarction (principal); I10 Essential (primary) hypertension; E78.00 Pure hypercholesterolemia, unspecified; E11.9 Type 2 diabetes mellitus without complications; E03.9 Hypothyroidism, unspecified; Z91.018 Allergy to other foods; Z88.8 Allergy status to other drugs, medicaments and biological substances; Z88.0 Allergy status to penicillin; Z91.030 Bee allergy status; Z91.010 Allergy to peanuts; Z79.899 Other long term (current) drug therapy; Z86.16 Personal history of COVID-19; Z90.49 Acquired absence of other specified parts of digestive tract; Z90.710 Acquired absence of both cervix and uterus
CPT/HCPCS: 36415; 71045; 80053; 83605; 83690; 83735; 84484; 85025; 85610; 85730; 93005; 96365; 96366; 96375; 96376; 99285; A9270; J1644; J2270

== ENCOUNTER 2024-05-31 16:20 | Inpatient (IN) | payer MEDICAID, MEDICARE ==
[2024-05-31 16:54] LABS: HEMATOCRIT 31.5 % (34.3-46.0); HEMOGLOBIN 11.2 g/dL (11.2-15.5); MEAN CORPUSCULAR HEMOGLOBIN 30.5 pg (31.6-35.5); MEAN CORPUSCULAR HGB CONC 35.6 g/dL (31.6-35.5); MEAN CORPUSCULAR VOLUME 85.8 fL (81.4-99.0); PLATELET COUNT,PLT 130 K/uL (130-375); RED BLOOD CELL COUNT 3.67 M/uL (3.77-5.24); WHITE BLOOD CELL COUNT,WBC 12.2 K/uL (3.2-11.0)
[2024-05-31 17:17] LABS: A/G RATIO 0.6 (1.2-2.2); ALANINE AMINOTRANSFERASE,ALT 15 U/L (12-78); ALBUMIN 2.5 g/dL (3.4-5.0); ALKALINE PHOSPHATASE 125 U/L (46-116); ASPARTATE AMNIOTRANSFERASE,AST 13 U/L (15-37); BILIRUBIN TOTAL 1.1 mg/dL (0.2-1.0); BLOOD UREA NITROGEN,BUN 42 mg/dL (7-18); CALCIUM 8.2 mg/dL (8.5-10.1); CARBON DIOXIDE,CO2 19 mmol/L (21-32); CHLORIDE,CL 98 mmol/L (100-108); CREATININE 2.6 mg/dL (0.6-1.0); EST CRCL DRUG DOSING (CG) 23.69 mL/min; ESTIMATED GFR 22 mL/min (>60); POTASSIUM,K 3.7 mmol/L (3.6-5.2); SODIUM,NA 131 mmol/L (140-148); TROPONIN I HIGH SENSITIVITY 7.7 pg/mL (<=60.3)
[2024-05-31 17:20] LABS: LACTIC ACID 1.5 mmol/L (0.4-2.0)
[2024-05-31 17:21] LABS: ANION GAP 17.7 mmol/L (5.0-14.0)
[2024-05-31 17:22] LABS: GLUCOSE RANDOM 407 mg/dL (74-106)
[2024-05-31] MEDS ORDERED: 50% Dextrose in Water 50 ML Syringe IVPUSH PRN ×2 (17:23→19:56)
[2024-05-31] MEDS ORDERED: Glucagon,Human Recombinant 1 MG Vial IM PRN (17:23)
[2024-05-31 17:40] LABS: APPEARANCE,URINE CLOUDY (CLEAR); BILIRUBIN,URINE SMALL (NEGATIVE); COLOR,URINE YELLOW (YELLOW); GLUCOSE,URINE 500 mg/dL (NEGATIVE); KETONES,URINE NEGATIVE (NEGATIVE); LEUKOCYTE ESTERASE,URINE NEGATIVE (NEGATIVE); NITRITE,URINE NEGATIVE (NEGATIVE); OCCULT BLOOD,URINE NEGATIVE (NEGATIVE); PH,URINE 5.5 (5.0-8.0); PROTEIN,URINE 100 mg/dL (NEGATIVE)
[2024-05-31] MEDS: Sodium Chloride 0.9% 1,000 ML IV SCH (17:47)
[2024-05-31] MEDS: Insulin Regular, Human 100 Units/ML 3 ML Vial IVPUSH ONE (17:47)
[2024-05-31 17:50] LABS: BASE EXCESS ARTERIAL -7.6 mm/L; BICARBONATE,ARTERIAL 16.9 mmol/L (22.0-26.0); CARBOXYHEMOGLOBIN 2.1 % (0.0-1.6); METHEMOGLOBIN 0.6 %; O2 SATURATION ARTERIAL 91.8 % (95.0-98.0); OXYHEMOGLOBIN 89.3 %; PCO2 ARTERIAL 32.9 mmHg (35.0-42.0); TOTAL HEMOGLOBIN 11.1 g/dL (12.0-16.0)
[2024-05-31 17:53] LABS: PO2 ARTERIAL 65.7 mmHg (75.0-100.0)
[2024-05-31 17:58] LABS: AMORPHOUS SEDIMENT,URINE MODERATE; BACTERIA,URINE MODERATE; EPITHELIAL CELLS,URINE RARE; MUCUS,URINE NOT SEEN; RBC,URINE 0-5 (0-5); WBC,URINE 0-5 (0-5)
[2024-05-31 18:03] LABS: BAND PERCENT MAN 9 % (5-11); LYMPHOCYTES ABSOLUTE MAN 0.73 K/uL (0.8-3.3); LYMPHOCYTES PERCENT MAN 6 % (24-44); METAMYELOCYTE ABSOLUTE MAN 0.12 K/uL; METAMYELOCYTE PERCENT MAN 1 %; MONOCYTES PERCENT MAN 9 % (2-6); MYELOCYTE ABSOLUTE MAN 0.24; MYELOCYTE PERCENT MAN 2 %; NEUTROPHILS ABSOLUTE MAN 8.91 K/uL (1.0-7.6); SEG NEUTROPHILS PERCENT MAN 73 % (36-66)
[2024-05-31 18:15] LABS: CORONAVIRUS COVID-19 NAA NEGATIVE (NEGATIVE); INFLUENZA A NAA NEGATIVE (NEGATIVE); INFLUENZA B NAA NEGATIVE (NEGATIVE); RESPIRATORY SYNCYTIAL VIR NAA NEGATIVE (NEGATIVE)
[2024-05-31] MEDS: Sodium Chloride 0.9% 1,000 ML IV ONE (18:49)
[2024-05-31] MEDS ORDERED: Albuterol/Ipratropium 3.0-0.5 MG/3 ML Neb Soln NEB PRN (19:56)
[2024-05-31] MEDS ORDERED: Potassium Chloride 20 MEQ in Premix Bag 1 BAG IV PRN (19:56)
[2024-05-31] MEDS ORDERED: Sodium Phosphate 60 MMOLE in Sodium Chloride 0.9% 250 ML IV PRN (19:56)
[2024-05-31] MEDS ORDERED: Polyethylene Glycol 3350 Powder 17 GM Packet PO PRN (19:56)
[2024-05-31] MEDS ORDERED: Acetaminophen 325 MG Tab PO PRN (19:56)
[2024-05-31] MEDS ORDERED: Potassium Chloride 10% 20 MEQ/15 ML Soln 15 ML UD Cup PO PRN ×2 (19:56)
[2024-05-31] MEDS ORDERED: Cyclobenzaprine 10 MG Tab PO PRN (19:56)
[2024-05-31] MEDS ORDERED: Sodium Chloride 0.9% 10 ML Syringe FLUSH PRN (19:56)
[2024-05-31] MEDS ORDERED: Albuterol 6.7 GM Inhaler INH PRN (19:56)
[2024-05-31 20:27] LABS: ANION GAP 14.3 mmol/L (5.0-14.0); CALCIUM 7.6 mg/dL (8.5-10.1); CREATININE 2.2 mg/dL (0.6-1.0); MAGNESIUM 1.2 mg/dL (1.8-2.4); PHOSPHORUS 3.1 mg/dL (2.5-4.9); POTASSIUM,K 3.3 mmol/L (3.6-5.2)
[2024-05-31] MEDS ORDERED: Doxepin 10 MG Cap PO SCH (21:00)
[2024-05-31] MEDS: Dextrose 5%-0.45% NaCl 1,000 ML IV PRN (21:11)
[2024-05-31] MEDS: Insulin Regular in 0.9 % NACL 100 ML IV SCH (21:12)
[2024-05-31] MEDS ORDERED: diphenhydrAMINE 50 MG/ML SDV IVPUSH PRN (21:19)
[2024-05-31] MEDS: Magnesium Oxide 400 MG Tab PO SCH (21:41)
[2024-05-31] MEDS: Enoxaparin 30 MG/0.3 ML Syringe SUBCUT SCH (21:41)
[2024-05-31] MEDS: Pregabalin 75 MG Cap PO SCH (21:41)
[2024-05-31] MEDS: Levofloxacin/Dextrose 5%-Water 750 MG in Premix Bag 1 BAG IV SCH (21:41)
[2024-05-31] MEDS: Doxepin 25 MG Cap PO SCH (21:41)
[2024-05-31] MEDS: Diclofenac Sodium 1% Gel 100 GM Tube TOP SCH (21:42)
[2024-05-31] MEDS: Sennosides/Docusate Sodium 50-8.6 MG Tab PO SCH (21:42)
[2024-05-31] MEDS: Pantoprazole 40 MG Tab.CR PO SCH (21:42)
[2024-05-31] MEDS: Potassium Chloride 20 MEQ in Premix Bag 1 BAG IV ONE (22:00)
[2024-05-31] MEDS: Sodium Chloride 0.9% 2,000 ML IV PRN (23:21)
[2024-06-01 00:22] LABS: CALCIUM 7.7 mg/dL (8.5-10.1); CREATININE 1.9 mg/dL (0.6-1.0); EST CRCL DRUG DOSING (CG) 32.42 mL/min; POTASSIUM,K 3.9 mmol/L (3.6-5.2)
[2024-06-01 00:28] LABS: ANION GAP 13.9 mmol/L (5.0-14.0)
[2024-06-01] MEDS: Magnesium Sulfate/Water Premix 50 ML IV PRN (00:31)
[2024-06-01] MEDS: Potassium Chloride 10% 20 MEQ/15 ML Soln 15 ML UD Cup PO PRN (01:09)
[2024-06-01 02:20] LABS: PHOSPHORUS 1.4 mg/dL (2.5-4.9); POTASSIUM,K 4.2 mmol/L (3.6-5.2)
[2024-06-01] MEDS: Metoprolol Tartrate 25 MG Tab PO ONE (02:57)
[2024-06-01 04:03] LABS: HEMATOCRIT 30.2 % (34.3-46.0); HEMOGLOBIN 10.8 g/dL (11.2-15.5); MEAN CORPUSCULAR HEMOGLOBIN 30.8 pg (31.6-35.5); MEAN CORPUSCULAR HGB CONC 35.8 g/dL (31.6-35.5); RED BLOOD CELL COUNT 3.51 M/uL (3.77-5.24); WHITE BLOOD CELL COUNT,WBC 9.6 K/uL (3.2-11.0)
[2024-06-01 04:13] LABS: ANION GAP 16.9 mmol/L (5.0-14.0); CALCIUM 7.9 mg/dL (8.5-10.1); CREATININE 1.8 mg/dL (0.6-1.0); EST CRCL DRUG DOSING (CG) 34.23 mL/min; POTASSIUM,K 3.9 mmol/L (3.6-5.2)
[2024-06-01] MEDS ORDERED: Norepinephrine Bit/D5W Premix 4 MG in Premix Bag 1 BAG IV SCH (06:15)
[2024-06-01] MEDS: Sodium Chloride 0.9% 500 ML IV ONE (06:15)
[2024-06-01 08:21] LABS: CALCIUM 7.5 mg/dL (8.5-10.1); CREATININE 1.8 mg/dL (0.6-1.0); EST CRCL DRUG DOSING (CG) 34.23 mL/min; MAGNESIUM 1.8 mg/dL (1.8-2.4); PHOSPHORUS 1.4 mg/dL (2.5-4.9); POTASSIUM,K 4.4 mmol/L (3.6-5.2)
[2024-06-01 08:24] LABS: ANION GAP 12.4 mmol/L (5.0-14.0)
[2024-06-01] MEDS ORDERED: Non-Formulary Medication 1 Each (Oxybutynin Chloride [Oxybutynin Chloride Er] 10 MG Tab.Er PO SCH (09:00)
[2024-06-01] MEDS: Hypromellose 0.3% Ophth Soln 15 ML Bottle EYEBOTH SCH (09:19)
[2024-06-01] MEDS: Potassium Chloride 10% 20 MEQ/15 ML Soln 15 ML UD Cup PO SCH (09:19)
[2024-06-01] MEDS: Oxybutynin 5 MG Tab PO SCH (09:19)
[2024-06-01] MEDS: Sertraline 50 MG Tab PO SCH (09:20)
[2024-06-01 12:19] LABS: CALCIUM 7.6 mg/dL (8.5-10.1); CREATININE 1.6 mg/dL (0.6-1.0); EST CRCL DRUG DOSING (CG) 38.5 mL/min; POTASSIUM,K 4.7 mmol/L (3.6-5.2)
[2024-06-01 12:21] LABS: ANION GAP 12.7 mmol/L (5.0-14.0)
[2024-06-01 16:21] LABS: CALCIUM 7.9 mg/dL (8.5-10.1); CREATININE 1.5 mg/dL (0.6-1.0); EST CRCL DRUG DOSING (CG) 41.07 mL/min
[2024-06-01] MEDS: PREGABALIN 20 MG/ML PO SCH (18:33)
[2024-06-01 22:09] LABS: ANION GAP 11.9 mmol/L (5.0-14.0); CALCIUM 7.7 mg/dL (8.5-10.1); CREATININE 1.3 mg/dL (0.6-1.0); EST CRCL DRUG DOSING (CG) 47.39 mL/min; POTASSIUM,K 3.9 mmol/L (3.6-5.2)
[2024-06-02 05:36] LABS: HEMATOCRIT 28.5 % (34.3-46.0); HEMOGLOBIN 9.8 g/dL (11.2-15.5); MEAN CORPUSCULAR HEMOGLOBIN 30.2 pg (31.6-35.5); MEAN CORPUSCULAR HGB CONC 34.4 g/dL (31.6-35.5); MEAN CORPUSCULAR VOLUME 87.7 fL (81.4-99.0); RED BLOOD CELL COUNT 3.25 M/uL (3.77-5.24)
[2024-06-02 06:01] LABS: A/G RATIO 0.4 (1.2-2.2); ALANINE AMINOTRANSFERASE,ALT 20 U/L (12-78); ALBUMIN 1.8 g/dL (3.4-5.0); ALKALINE PHOSPHATASE 99 U/L (46-116); ASPARTATE AMNIOTRANSFERASE,AST 42 U/L (15-37); BILIRUBIN TOTAL 0.5 mg/dL (0.2-1.0); BLOOD UREA NITROGEN,BUN 16 mg/dL (7-18); CARBON DIOXIDE,CO2 20 mmol/L (21-32); CHLORIDE,CL 108 mmol/L (100-108); CREATININE 1.2 mg/dL (0.6-1.0); EST CRCL DRUG DOSING (CG) 51.34 mL/min; ESTIMATED GFR 54 mL/min (>60); GLUCOSE RANDOM 188 mg/dL (74-106); POTASSIUM,K 3.5 mmol/L (3.6-5.2); PROTEIN TOTAL,TP 5.9 g/dL (6.4-8.2); SODIUM,NA 137 mmol/L (140-148)
[2024-06-02 06:08] LABS: ANION GAP 12.5 mmol/L (5.0-14.0)
[2024-06-02] MEDS: Potassium Chloride 10% 20 MEQ/15 ML Soln 15 ML UD Cup PO SCH (10:15)
[2024-06-02 11:56] LABS: CALCIUM 8.2 mg/dL (8.5-10.1); CREATININE 1.1 mg/dL (0.6-1.0); POTASSIUM,K 5.1 mmol/L (3.6-5.2)
[2024-06-02 12:03] LABS: ANION GAP 13.1 mmol/L (5.0-14.0)
[2024-06-02] MEDS ORDERED: Sodium Chloride 77 MEQ in Dextrose 10% in Water 500 ML IV SCH (13:30)
[2024-06-02] MEDS: SODIUM CHLORIDE IV SCH (13:39)
[2024-06-02] MEDS: DEXTROSE 10% IV SCH (13:39)
[2024-06-02] MEDS: WATER IV SCH (13:39)
[2024-06-02] MEDS: oxyCODONE 5 MG Tab PO PRN (16:28)
[2024-06-02 19:18] LABS: CALCIUM 8.1 mg/dL (8.5-10.1); EST CRCL DRUG DOSING (CG) 61.61 mL/min; POTASSIUM,K 4.6 mmol/L (3.6-5.2)
[2024-06-02 19:19] LABS: ANION GAP 10.6 mmol/L (5.0-14.0)
[2024-06-02] MEDS: Levofloxacin 250 MG Tab PO SCH (21:01)
[2024-06-03 00:20] LABS: ANION GAP 12.7 mmol/L (5.0-14.0); CALCIUM 8.5 mg/dL (8.5-10.1); CREATININE 1.1 mg/dL (0.6-1.0); EST CRCL DRUG DOSING (CG) 56.31 mL/min; POTASSIUM,K 4.7 mmol/L (3.6-5.2)
[2024-06-03] MEDS: Insulin Glargine,Human Rec. Analog 100 Units/ML 3 ML Pen SUBCUT ONE (00:46)
[2024-06-03 05:01] LABS: BASOPHILS ABSOLUTE AUTO 0.02 K/uL (0.00-0.10); BASOPHILS PERCENT AUTO 0.4 % (0.1-1.3); EOSINOPHILS ABSOLUTE AUTO 0.18 K/uL (0.00-0.40); EOSINOPHILS PERCENT AUTO 3.8 % (0.0-5.4); HEMATOCRIT 28.4 % (34.3-46.0); HEMOGLOBIN 10.1 g/dL (11.2-15.5); IMMATURE GRAN ABSOLUTE AUTO 0.05 K/uL (0.00-0.23); LYMPHOCYTES ABSOLUTE AUTO 1.15 K/uL (0.8-3.3); LYMPHOCYTES PERCENT AUTO 24.1 % (11.4-47.7); MEAN CORPUSCULAR HEMOGLOBIN 30.4 pg (31.6-35.5); MEAN CORPUSCULAR HGB CONC 35.6 g/dL (31.6-35.5); MEAN CORPUSCULAR VOLUME 85.5 fL (81.4-99.0); MONOCYTES ABSOLUTE AUTO 0.47 K/uL (0.20-0.90); MONOCYTES PERCENT AUTO 9.9 % (3.3-12.6); NEUTROPHILS PERCENT AUTO 60.8 % (40.0-78.1); PLATELET COUNT,PLT 140 K/uL (130-375); RED BLOOD CELL COUNT 3.32 M/uL (3.77-5.24); WHITE BLOOD CELL COUNT,WBC 4.8 K/uL (3.2-11.0)
[2024-06-03 05:16] LABS: CALCIUM 8.8 mg/dL (8.5-10.1); EST CRCL DRUG DOSING (CG) 61.94 mL/min; POTASSIUM,K 4.8 mmol/L (3.6-5.2)
[2024-06-03 05:17] LABS: ANION GAP 13.8 mmol/L (5.0-14.0)
[2024-06-03] MEDS ORDERED: Glucagon,Human Recombinant 1 MG Vial IM PRN (11:33)
[2024-06-03] MEDS ORDERED: 50% Dextrose in Water 50 ML Syringe IVPUSH PRN (11:33)
[2024-06-03] MEDS: Insulin Lispro 100 Unit/ML 3 ML KwikPen SUBCUT SCH (11:34)
[2024-06-03] MEDS: Ondansetron 4 MG/2 ML SDV IV PRN (18:26)
[2024-06-03] MEDS: Carvedilol 3.125 MG Tab PO SCH (18:28)
[2024-06-03] MEDS: Losartan 25 MG Tab PO SCH (18:28)
[2024-06-03] MEDS: Losartan 50 MG Tab ONE (19:12)
[2024-06-03] MEDS: Levofloxacin 250 MG Tab PO SCH (20:17)
[2024-06-03] MEDS: Insulin Glargine,Human Rec. Analog 100 Units/ML 3 ML Pen SUBCUT SCH (21:02)
[2024-06-04 12:09] VITALS: BP 146/76; PULSE 98
== END 2024-06-04 12:11 | disposition home or self-care (01) | DRG 637 ==
LOC: JP.ED 16:20 → JP.ICU 18:43 → UNDOADMIN 19:52 → JP.ICU 19:52
PROVIDERS: ADMIT Hospitalist; ATTEND Internal Medicine
PROC: 4A033R1 Measurement of Arterial Saturation, Peripheral, Percutaneous Approach (ICD-10-PCS; principal; 2024-05-31)
DX: E11.10 Type 2 diabetes mellitus with ketoacidosis without coma (principal); J18.9 Pneumonia, unspecified organism; J96.01 Acute respiratory failure with hypoxia; N17.9 Acute kidney failure, unspecified; E11.00 Type 2 diabetes mellitus with hyperosmolarity without nonketotic hyperglycemic-hyperosmolar coma (NKHHC); E78.00 Pure hypercholesterolemia, unspecified; I10 Essential (primary) hypertension; J45.909 Unspecified asthma, uncomplicated; K21.9 Gastro-esophageal reflux disease without esophagitis; K58.9 Irritable bowel syndrome, unspecified; M79.7 Fibromyalgia; G89.29 Other chronic pain; E11.40 Type 2 diabetes mellitus with diabetic neuropathy, unspecified; F41.9 Anxiety disorder, unspecified; Z91.030 Bee allergy status; F32.A Depression, unspecified; F15.90 Other stimulant use, unspecified, uncomplicated; E86.0 Dehydration; E87.70 Fluid overload, unspecified; I25.10 Atherosclerotic heart disease of native coronary artery without angina pectoris; Z98.84 Bariatric surgery status; Z88.6 Allergy status to analgesic agent; Z88.1 Allergy status to other antibiotic agents; Z91.010 Allergy to peanuts; Z88.0 Allergy status to penicillin; Z91.013 Allergy to seafood; Z88.8 Allergy status to other drugs, medicaments and biological substances; Z91.018 Allergy to other foods; Z91.09 Other allergy status, other than to drugs and biological substances; Z79.51 Long term (current) use of inhaled steroids; Z79.1 Long term (current) use of non-steroidal anti-inflammatories (NSAID); Z79.899 Other long term (current) drug therapy; Z79.02 Long term (current) use of antithrombotics/antiplatelets; Z87.440 Personal history of urinary (tract) infections; Z86.73 Personal history of transient ischemic attack (TIA), and cerebral infarction without residual deficits; Z87.81 Personal history of (healed) traumatic fracture; Z87.442 Personal history of urinary calculi; Z86.16 Personal history of COVID-19; Z90.49 Acquired absence of other specified parts of digestive tract; Z98.890 Other specified postprocedural states; Z90.710 Acquired absence of both cervix and uterus
CPT/HCPCS: 0241U; 36415; 36600; 70450; 71045; 71045-26; 80048; 80053; 81001; 82010; 82803; 82947; 83036; 83605; 83735; 84100; 84132; 84145; 84484; 85025; 85027; 87040; 93005; 93010; 96360; 99223; 99232; 99233; 99238; 99285; 99285-25; A9270-GY; J1650; J1815; J1815-GY; J1956; J2405; J3475; J3480; J7030; J7040; J7131; J7799

== ENCOUNTER 2024-11-12 08:00 | Day surgery (SDC) | payer MEDICARE, MEDICAID ==
[2024-11-12] MEDS: Lactated Ringers 1,000 ML IV SCH (08:49)
[2024-11-12] MEDS ORDERED: Midazolam 1 MG/ML 2 ML SDV ONE (09:33)
[2024-11-12] MEDS ORDERED: Propofol 200 MG/20 ML SDV ONE (09:33)
[2024-11-12] MEDS ORDERED: fentaNYL 100 MCG/2 ML SDV ONE (09:33)
[2024-11-12 11:05] VITALS: BP 123/80; PULSE 74
== END 2024-11-12 11:16 | disposition home or self-care (01) ==
LOC: JP.SDS 08:00
PROVIDERS: ATTEND Surgery
DX: R13.10 Dysphagia, unspecified (principal); I10 Essential (primary) hypertension; E11.9 Type 2 diabetes mellitus without complications
CPT/HCPCS: 00731; 43239; 43245; 88305; J2250; J2704; J3010; J7120